=== PATIENT | male | born 1935 | race Caucasian/White ===

== ENCOUNTER 2016-06-20 10:45 | Emergency (ER) | payer MEDICARE ==
[2016-06-20 10:56] VITALS: BP 154/80
--- NOTE | 2016-06-20 11:50 | UC ---
Respiratory Complaint HPI - HPI Summary HPI Summary: The patient comes in today for: 1. Sinus pressure, rhinitis, cold chills, coughing, myalgia: Onset: 10 days ago. Palliative/provocative: Tylenol helps relieves pain of the neck (posterior) and shoulders. He has pain down his left arm. He denies any chest pain. Quality: [place] Region: Left arm aching, bilateral shoulder pain, posterior neck. Severity: 7/10 Time: Constant. Associated symptoms: Dyspnea: No new shortness of breath. Temperature: None. Rhinitis: white Cough: dry. * - History of Current Complaint Chief Complaint: UC Stated Complaint: SINUS CONGESTION, AND ACHES Time Seen by Provider: 06/20/16 11:39 Hx Obtained From: Patient - Allergies/Home Medications Allergies/Adverse Reactions: Allergies Allergy/AdvReac Type Severity Reaction Status Date / Time Niacin Allergy Severe Hives Verified 06/20/16 10:50 Fish Oil Allergy Unknown Verified 06/20/16 10:50 Reaction Details Colesevelam [From Welchol] AdvReac Severe See Comment Verified 06/20/16 10:50 Atorvastatin [From Lipitor] AdvReac Intermediate See Comment Verified 06/20/16 10:50 Simvastatin [From Zocor] AdvReac Intermediate See Comment Verified 06/20/16 10: 50 Dronedarone [From Multaq] AdvReac Mild GI Upset Verified 06/20/16 10:50 Metoprolol [From Lopressor] AdvReac Mild See Comment Verified 06/20/16 10:50 Nitroglycerin AdvReac Mild See Comment Verified 06/20/16 10:50 Tamsulosin [From Flomax] AdvReac Mild See Comment Verified 06/20/16 10:50 Warfarin [From Coumadin] AdvReac Mild See Comment Verified 06/20/16 10:50 TYKOSYN Allergy V TACH Uncoded 06/20/16 10:50 Home Medications: Home Medications Methocarbamol TAB* [Robaxin TAB*] 500 mg PO TID PRN 06/20/16 [History Confirmed 06/20/16] Omeprazole [Prilosec] 20 mg PO DAILY 06/20/16 [History Confirmed 06/20/16] Tamsulosin HCl [Flomax] 1 cap PO DAILY 06/20/16 [History Confirmed 06/20/16] PMH/Surg Hx/FS Hx/Imm Hx Previously Healthy: No - BPH, Endocrine History Of: Reports: Thyroid Disease Denies: Diabetes Cardiovascular History Of: Reports: Cardiac Disorders - THREE heart surgeries since 2006; a fib, Hypertension, Pacemaker/ICD, Congestive Heart Failure, Atrial Fibrillation Denies: Myocardial Infarction, Deep Vein Thrombosis, Bleeding Disorders Respiratory History Of: Reports: COPD Denies: Asthma, Bronchitis, Pneumonia, Pulmonary Embolism GI/ History Of: Reports: Gastroesophageal Reflux, Gall Bladder Disease - Removed. Denies: Ulcer, Gastrointestinal Bleed, Kidney Stones, Diverticulitis, Renal Disease, Urosepsis Neurological History Of: Denies: TIA, CVA, Dementia, Seizures, Migraine Psychological History Of: Denies: Anxiety, Depression, Bipolar Disorder, Schizophrenia, Post Traumatic Stress Disorder Cancer History Of: Denies: Lung Cancer, Colorectal Cancer, Breast Cancer, Prostate Cancer, Cervical Cancer Other History Of: Anticoagulant Therapy Negative For: HIV, Hepatitis B, Hepatitis C - Surgical History Surgical History: Yes Surgery Procedure, Year, and Place: BL knee rplace. left ankle. jodie. cataracts. aortic valve replace. VENOUS GRAFT/double bypass. pacemaker, stents. pacemaker. cardiac stent. TRACY IN LLE. Gallbladder out - Family History Known Family History: Positive: Cardiac Disease, Hypertension, Diabetes - Social History Occupation: Retired Lives: With Family Alcohol Use: None Substance Use Type: None Smoking Status (MU): Never Smoked Tobacco Have You Smoked in the Last Year: No - Immunization History Most Recent Influenza Vaccination: fall 2015 Most Recent Tetanus Shot: within the last 10 years Most Recent Pneumonia Vaccination: 2013 Review of Systems Constitutional: Chills Skin: Negative Eyes: Negative ENT: Negative, Nasal Discharge Respiratory: Cough Cardiovascular: Negative Gastrointestinal: Negative Genitourinary: Negative All Other Systems Reviewed And Are Negative: Yes Physical Exam Triage Information Reviewed: Yes Appearance: Well-Appearing, No Pain Distress, Well-Nourished Vital Signs: Initial Vital Signs Temp 99.0 F 06/20/16 10:51 Pulse 79 06/20/16 10:51 Resp 16 06/20/16 10:51 BP 154/80 06/20/16 10:51 Pulse Ox 100 06/20/16 10:51 Vital Signs Reviewed: Yes Eyes: Positive: Conjunctiva Clear. Negative: Discharge ENT: Positive: Hearing grossly normal. Negative: Pharyngeal erythema, Nasal congestion, Nasal drainage, TM bulging, TM dull, TM red, Tonsillar swelling, Tonsillar exudate Dental: Negative: Gross Decay/Caries @, Dental Fracture @ Neck: Positive: Supple, Nontender, No Lymphadenopathy. Negative: Nuchal Rigidity Respiratory: Positive: Chest non-tender, Lungs clear, No respiratory distress, No accessory muscle use Cardiovascular: Positive: RRR, No Murmur Abdomen Description: Positive: Nontender, No Organomegaly, Soft. Negative: Distended, Guarding Musculoskeletal: Positive: Strength Intact, ROM Intact Neurological: Positive: Alert, Muscle Tone Normal Psychological: Positive: Age Appropriate Behavior, Consolable Skin: Negative: rashes, breakdown UC Diagnostic Evaluation - Laboratory O2 Sat by Pulse Oximetry: 100 Diagnostic Studies Comment: CXR: IMPRESSION: 1. Postsurgical changes and cardiomegaly, unchanged. 2. COPD, no evidence for acute finding. 3. Chronic dorsal vertebral compression fractures. - Radiology Xray Interpretation: No Acute Changes Radiology Interpretation Completed By: Radiologist Respiratory Course/Dx - Differential Dx/Diagnosis Provider Diagnoses: Viral syndrome. Early bacterial sinusitis Discharge - Discharge Plan Condition: Stable Disposition: HOME Patient Education Materials: Viral Syndrome (ED), Sinusitis (ED)
--- NOTE | 2016-06-20 12:27 | RAD ---
INDICATION: Chills cough, COPD and dyspnea. COMPARISON: Comparison is made with a prior study from August 24, 2014. TECHNIQUE: Dual-energy PA and lateral views of the chest were obtained. FINDINGS: The patient appears to be status post sternotomy and aortic valve surgery. The heart is moderately enlarged and unchanged in size. There is a transvenous pacemaker present. There is bilateral apical pleural thickening which is unchanged most consistent with scarring. The lungs are hyperinflated with flattening of the diaphragms consistent with chronic obstructive pulmonary disease. The lungs are clear. No pleural effusion is seen. 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 There are multiple compression fractures of mid and lower dorsal vertebra which have progressed slightly from the prior study. IMPRESSION: 1. Postsurgical changes and cardiomegaly, unchanged. 2. COPD, no evidence for acute finding. 3. Chronic dorsal vertebral compression fractures.
== END 2016-06-20 13:30 | disposition home or self-care (01) ==
LOC: UCEAST 10:45
DX: B34.9 Viral infection, unspecified (principal); J32.9 Chronic sinusitis, unspecified; Z88.8 Allergy status to other drugs, medicaments and biological substances; I48.91 Unspecified atrial fibrillation; Z79.01 Long term (current) use of anticoagulants; Z95.0 Presence of cardiac pacemaker; I10 Essential (primary) hypertension; I50.9 Heart failure, unspecified; K21.9 Gastro-esophageal reflux disease without esophagitis; J44.9 Chronic obstructive pulmonary disease, unspecified; Z90.49 Acquired absence of other specified parts of digestive tract; Z96.653 Presence of artificial knee joint, bilateral; Z98.42 Cataract extraction status, left eye; Z98.41 Cataract extraction status, right eye
CPT/HCPCS: 71020; 93005; 99212; G0463

== ENCOUNTER 2016-12-12 09:45 | Emergency (ER) | payer MEDICARE ==
--- NOTE | 2016-12-12 11:09 | UC ---
Upper Extremity HPI - HPI Summary HPI Summary: This is an 81 yo male with extensive cardiac history who presents with c/o L shoulder pain. Pain started suddenly 3-4 days ago. No acute injury or trauma that started the pain. Pain is over the mid scapula and radiates up to his neck and down his arm. Exacerbated by movement of his neck. He has been taking APAP without improvement. His has been applying a muscle rub with some improvement. <Mike Richards - Last Filed: 12/12/16 12:07> <Daja Curry - Last Filed: 12/12/16 20:44> - History of Current Complaint Chief Complaint: UCUpperExtremity Stated Complaint: SHOULDER PAIN - Allergies/Home Medications Allergies/Adverse Reactions: Allergies Allergy/AdvReac Type Severity Reaction Status Date / Time Niacin Allergy Severe Hives Verified 12/12/16 09:56 Fish Oil Allergy Unknown Verified 12/12/16 09:56 Reaction Details Colesevelam [From Welchol] AdvReac Severe See Comment Verified 12/12/16 09:56 Atorvastatin [From Lipitor] AdvReac Intermediate See Comment Verified 12/12/16 09:56 Simvastatin [From Zocor] AdvReac Intermediate See Comment Verified 12/12/16 09: 56 Dronedarone [From Multaq] AdvReac Mild GI Upset Verified 12/12/16 09:56 Metoprolol [From Lopressor] AdvReac Mild See Comment Verified 12/12/16 09:56 Nitroglycerin AdvReac Mild See Comment Verified 12/12/16 09:56 Tamsulosin [From Flomax] AdvReac Mild See Comment Verified 12/12/16 09:56 Warfarin [From Coumadin] AdvReac Mild See Comment Verified 12/12/16 09:56 TYKOSYN Allergy V TACH Uncoded 12/12/16 09:56 PMH/Surg Hx/FS Hx/Imm Hx Previously Healthy: No Cardiovascular History: Cardiac Disease Other History Of: Anticoagulant Therapy Negative For: HIV, Hepatitis B, Hepatitis C - Surgical History Surgical History: Yes Surgery Procedure, Year, and Place: BL knee rplace. left ankle. jodie. cataracts. aortic valve replace. VENOUS GRAFT/double bypass. pacemaker, stents. pacemaker. cardiac stent. TRACY IN LLE. Gallbladder. cardiac ablation - Family History Known Family History: Positive: Cardiac Disease, Hypertension, Diabetes - Social History Alcohol Use: None Substance Use Type: None Smoking Status (MU): Never Smoked Tobacco Have You Smoked in the Last Year: No - Immunization History Most Recent Influenza Vaccination: fall 2015 Most Recent Tetanus Shot: within the last 10 years Most Recent Pneumonia Vaccination: 2013 <Mike Richards - Last Filed: 12/12/16 12:07> Review of Systems Constitutional: Negative Skin: Negative Eyes: Negative ENT: Negative Respiratory: Negative Cardiovascular: Negative Gastrointestinal: Negative Genitourinary: Negative Motor: Decreased ROM Neurovascular: Negative Musculoskeletal: Arthralgia, Decreased ROM Neurological: Negative Psychological: Negative All Other Systems Reviewed And Are Negative: Yes <Mike Richards - Last Filed: 12/12/16 12:07> Physical Exam Triage Information Reviewed: Yes Appearance: Well-Appearing Vital Signs: Initial Vital Signs Temp 98.5 F 12/12/16 09:57 Pulse 71 12/12/16 09:57 Resp 18 12/12/16 09:57 BP 131/69 12/12/16 09:57 Pulse Ox 100 12/12/16 09:57 Vital Signs Reviewed: Yes ENT: Positive: Normal ENT inspection Neck: Positive: Supple, Tenderness @ - L lateral neck and trapezius Respiratory: Positive: Lungs clear. Negative: Crackles, Rhonchi, Wheezing Cardiovascular: Positive: RRR, No Murmur Musculoskeletal: Positive: Strength Intact, ROM Limited @ - cervical flexion and extension limited due to pain and arthritic changes, Other: - kyphotic posture Neurological: Positive: Alert Psychological: Positive: Normal Response To Family Skin Exam: Normal <Mike Richards - Last Filed: 12/12/16 12:07> Vital Signs: Initial Vital Signs Temp 98.5 F 12/12/16 09:57 Pulse 71 12/12/16 09:57 Resp 18 12/12/16 09:57 BP 131/69 12/12/16 09:57 Pulse Ox 100 12/12/16 09:57 <Daja Curry - Last Filed: 12/12/16 20:44> Diagnostics - Laboratory Diagnostic Studies Completed/Ordered: XR CS - advanced OA, nothing acute. XR L shoulder - mild OA at AC joint, no acute process <Mike Richards - Last Filed: 12/12/16 12:07> Upper Extremity Course/Dx - Course Course Of Treatment: This is an 81 yo male with extensive cardiac history who presents with L shoulder pain exacerbated with neck movement. Patient requested XRs which demonstrated OA but no acute findings. This likely represents cervical strain and associated trapezium spasm. - Differential Dx/Diagnosis Differential Diagnosis/HQI/PQRI: Arthritis, Fracture (Closed), Strain, Sprain Provider Diagnoses: 1. Cervical strain <Mike Richards - Last Filed: 12/12/16 12:07> Discharge <Mike Richards - Last Filed: 12/12/16 12:07> <Daja Curry - Last Filed: 12/12/16 20:44> - Discharge Plan Condition: Stable Disposition: HOME Patient Education Materials: Cervical Strain (ED) Referrals: Hugh Cobos MD [Primary Care Provider] - If Needed Additional Instructions: Activity: As tolerated Instructions: 1. Apply heat to the area frequently 2. Apply muscle rub cream for relief 3. Light massage can help 4. Continue tylenol as needed Attestation Statement User Type: Provider - I was available for consult. This patient was seen by the ROMAINE. The patient was not presented to, seen by, or examined by me. -Cheryl <Djaa Curry - Last Filed: 12/12/16 20:44>
--- NOTE | 2016-12-12 11:43 | RAD ---
INDICATION: Left neck and shoulder pain COMPARISON: None TECHNIQUE: AP, lateral, and odontoid views were acquired FINDINGS: Bones: There are no acute bony findings. There are advanced arthritic changes with disc space narrowing from C3 through C7. The lower cervical vertebrae are not well evaluated, however, due to interference the patient's shoulders. There is also endplate sclerosis with multilevel facet arthropathy. Mild anterolistheses of multiple vertebrae are likely on the basis of degenerative change. The AP view the odontoid is limited. The atlantodental interval is normal. The prevertebral soft tissues are normal. IMPRESSION: ADVANCED OSTEOARTHRITIS.
[2016-12-12 11:44] VITALS: BP 130/65
--- NOTE | 2016-12-12 11:48 | RAD ---
INDICATION: Left shoulder pain COMPARISON: None TECHNIQUE: Routine frontal, Y and axial views were obtained. FINDINGS: There is no acute bony change. There is mild glenohumeral osteoarthritis. The AC joint is intact The soft tissues are normal.. IMPRESSION: MINOR AC JOINT OSTEOARTHRITIS
== END 2016-12-12 12:12 | disposition home or self-care (01) ==
LOC: UCEAST 09:45
DX: S16.1XXA Strain of muscle, fascia and tendon at neck level, initial encounter (principal); X58.XXXA Exposure to other specified factors, initial encounter; Y93.9 Activity, unspecified; Y99.9 Unspecified external cause status; Z88.8 Allergy status to other drugs, medicaments and biological substances; I25.10 Atherosclerotic heart disease of native coronary artery without angina pectoris; Z98.61 Coronary angioplasty status
CPT/HCPCS: 72040; 99212; G0463

== ENCOUNTER 2017-06-13 21:06 | Emergency (ER) | payer MEDICARE ==
[2017-06-13 22:30] LABS: ABS Basophils 0 10^3/ul (0-0.2); ABS Eosinophils 0.1 10^3/ul (0-0.6); ABS Lymphocytes 0.9 10^3/ul (1.0-4.8); ABS Monocytes 0.8 10^3/ul (0-0.8); ABS Neutrophils 3.8 10^3/ul (1.5-7.7); ABS Nucleated RBC 0 10^3/ul; Eosinophil % 1.7 % (0-6); Hematocrit 33 % (42-52); Hemoglobin 11.3 g/dl (14.0-18.0); Lymphocyte % 16.3 % (25-47); Mean Corpuscular HGB Conc 34 g/dl (31-36); Mean Corpuscular Hemoglobin 34 pg (27-31); Mean Corpuscular Volume 99 fL (80-94); Mean Platelet Volume 9 um3 (7.4-10.4); Nucleated Red Blood Cells % 0; Platelet Count 131 10^3/ul (150-450); Red Blood Count 3.35 10^6/ul (4.0-5.4); Red Cell Distribution Width 13 % (10.5-15); White Blood Count 5.7 10^3/ul (3.5-10.8)
[2017-06-13 22:44] LABS: EGFR Non-African American 43.7 (>60)
--- NOTE | 2017-06-14 02:20 | ED ---
Adrian Barksdale Jennifer, scribed for Fabián Cai on 06/13/17 at 2202 . HPI Chest Pain - HPI Summary HPI Summary: The patient is an 81 year old male who presents to the ED with chest pain that began at 18:30. The patient explains he was in the hospital this afternoon but discharged at 14:00. He was told to return to the ED if any chest pain came back. The patient describes the pain as a pressure but explains he feels fine in the ED now. He did not take any NTG on the way to the ED. The patient denies fever, cough. - History of Current Complaint Chief Complaint: EDChestPainROMI Time Seen by Provider: 06/13/17 21:39 Hx Obtained From: Patient Onset/Duration: Started Hours Ago - about 3-4 hours ago, Resolved Timing: Constant Initial Severity: Mild Current Severity: Mild Pain Intensity: 5 Pain Scale Used: 0-10 Numeric Chest Pain Radiates: No Character: Pressure/Squeezing Aggravating Factor(s): Nothing Alleviating Factor(s): Nothing Associated Signs and Symptoms: Positive: Negative - Fever, cough - Additional Pertinent History Primary Care Physician: [id number] - Allergy/Home Medications Allergies/Adverse Reactions: Allergies Allergy/AdvReac Type Severity Reaction Status Date / Time atorvastatin [From Lipitor] Allergy See Comment Verified 06/13/17 21:16 colesevelam [From WelChol] Allergy Constipatio Verified 06/13/17 21:16 n dronedarone Allergy GI Upset Verified 06/13/17 21:16 fish oil Allergy Unknown Verified 06/13/17 21:16 Reaction Details metoprolol Allergy See Comment Verified 06/13/17 21:16 niacin Allergy Hives Verified 06/13/17 21:16 nitroglycerin Allergy See Comment Verified 06/13/17 21:16 simvastatin Allergy See Comment Verified 06/13/17 21:16 tamsulosin [From Flomax] Allergy Dizziness Verified 06/13/17 21:16 warfarin Allergy Unknown Verified 06/13/17 21:16 Reaction Details TYKOSYN Allergy V TACH Uncoded 06/13/17 21:16 PMH/Surg Hx/FS Hx/Imm Hx Endocrine/Hematology History: Reports: Hx Anticoagulant Therapy, Hx Blood Transfusions, Hx Thyroid Disease Denies: Hx Bone Marrow Disease, Hx Diabetes, Hx Systemic Lupus Erythematosus , Hx Sickle Cell Disease, Hx Anemia, Hx Unexplained Bleeding Cardiovascular History: Reports: Hx Angina, Hx Angioplasty, Hx Atrial Fibrillation, Hx Auto Implanted Cardiovert Defib, Hx Congestive Heart Failure, Hx Coronary Artery Disease - with bypass, Hx Hypercholesterolemia, Hx Hypotension, Hx Hypertension, Hx Pacemaker/ICD, Hx Valvular Heart Disease - AORTIC STENOSIS/VALVE REPLACEMENT, Other Cardiovascular Problems/Disorders - valve replacement, pacemaker Denies: Hx Aneurysm, Hx Cardiac Arrest, Hx Cardiomegaly, Hx Congenital Heart Disease, Hx Deep Vein Thrombosis, Hx Embolism, Hx Myocardial Infarction, Hx Peripheral Vascular Disease, Hx Rheumatic Fever, Hx Syncope Respiratory History: Reports: Hx Chronic Obstructive Pulmonary Disease (COPD), Hx Sleep Apnea, Other Respiratory Problems/Disorders - on home O2. 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 Denies: Hx Asthma, Hx Lung Cancer, Hx Pneumonia, Hx Pulmonary Embolism GI History: Reports: Hx Diverticulosis, Hx Gall Bladder Disease - Removed., Hx Gastroesophageal Reflux Disease, Hx Hiatal Hernia, Hx Irritable Bowel, Other GI Disorders - GERD hiatal hernia hx ileus occas diarhea Denies: Hx Gastrointestinal Bleed, Hx Ulcer, Hx Urosepsis History: Reports: Hx Acute Renal Failure, Other Problems/Disorders - enlarged prostate hx bx Denies: Hx Kidney Stones, Hx Renal Disease Musculoskeletal History: Reports: Hx Arthritis, Other Musculoskeletal History - arthritis knees toes wrist Denies: Hx Back Problems, Hx Bursitis, Hx Congenital Bone Abnormalities, Hx Fibromyalgia, Hx Gout, Hx Orthopedic Injury, Hx Osteoporosis, Hx Scoliosis, Hx Tendonitis Sensory History: Denies: Hx Cataracts, Hx Contacts or Glasses, Hx Eye Prosthesis, Hx Glaucoma , Hx Legally Blind, Hx Macular Degeneration, Hx Vision Problem, Hx Deafness, Hx Hearing Aid Opthamlomology History: Denies: Hx Cataracts, Hx Contacts or Glasses, Hx Eye Prosthesis, Hx Glaucoma , Hx Legally Blind, Hx Macular Degeneration, Hx Vision Problem Neurological History: Reports: Hx Headaches Denies: Hx Dementia, Hx Developmental Delay, Hx Migraine, Hx Nerve Disease, Hx Seizures, Hx Spinal Cord Injury, Hx Transient Ischemic Attacks (TIA) Psychiatric History: Reports: Hx Anxiety, Hx Depression Denies: Hx Schizophrenia, Hx Bipolar Disorder - Surgical History Surgery Procedure, Year, and Place: BL knee rplace. left ankle. jodie. cataracts. aortic valve replace. VENOUS GRAFT/double bypass. pacemaker, stents. pacemaker. cardiac stent. TRACY IN LLE. Gallbladder. cardiac ablation Hx Anesthesia Reactions: No Infectious Disease History: No Infectious Disease History: Denies: Hx Clostridium Difficile, Hx Hepatitis, Hx Human Immunodeficiency Virus (HIV), Hx of Known/Suspected MRSA, Hx Shingles, Hx Tuberculosis, Hx Known/ Suspected VRE, Hx Known/Suspected VRSA, History Other Infectious Disease, Traveled Outside the [place] in Last 30 Days - Family History Known Family History: Positive: Cardiac Disease, Hypertension, Diabetes - Social History Alcohol Use: None Substance Use Type: Reports: None Hx Tobacco Use: No Smoking Status (MU): Never Smoked Tobacco Have You Smoked in the Last Year: No Review of Systems Negative: Fever Positive: Chest Pain Negative: Cough All Other Systems Reviewed And Are Negative: Yes Physical Exam - Summary Physical Exam Summary: Appearance: Well appearing, no pain distress Skin: warm, dry, reflects adequate perfusion Head/face: normal Eyes: EOMI, BIANCA ENT: normal Neck: supple, non-tender Respiratory: CTA, breath sounds present Cardiovascular: RRR, pulses symmetrical Abdomen: non-tender, soft Bowel: present Musculoskeletal: normal, strength/ROM intact Neuro: normal, sensory motor intact, A&Ox3 Triage Information Reviewed: Yes Vital Signs On Initial Exam: Initial Vitals Temp Pulse Resp BP Pulse Ox 98.6 F 86 20 156/84 100 06/13/17 21:12 06/13/17 21:12 06/13/17 21:12 06/13/17 21:12 06/13/17 21:12 Vital Signs Reviewed: Yes Diagnostics - Vital Signs Vital Signs Temp Pulse Resp BP Pulse Ox 06/13/17 21:30 71 19 97 06/13/17 21:12 98.6 F 86 20 156/84 100 - Laboratory Lab Results: Lab Results 06/13/17 06/13/17 06/13/17 Range/Units 22:13 22:13 22:13 WBC 5.7 (3.5-10.8) 10^3/ul RBC 3.35 L (4.0-5.4) 10^6/ul Hgb 11.3 L (14.0-18.0) g/dl Hct 33 L (42-52) % MCV 99 H (80-94) fL MCH 34 H (27-31) pg MCHC 34 (31-36) g/dl RDW 13 (10.5-15) % Plt Count 131 L (150-450) 10^3/ul MPV 9 (7.4-10.4) um3 Neut % (Auto) 67.5 (38-83) % Lymph % (Auto) 16.3 L (25-47) % [place] % (Auto) 13.8 H (0-7) % Eos % (Auto) 1.7 (0-6) % Baso % (Auto) 0.7 (0-2) % Absolute Neuts (auto) 3.8 (1.5-7.7) 10^3/ul Absolute Lymphs (auto) 0.9 L (1.0-4.8) 10^3/ul Absolute Monos (auto) 0.8 (0-0.8) 10^3/ul Absolute Eos (auto) 0.1 (0-0.6) 10^3/ul Absolute Basos (auto) 0 (0-0.2) 10^3/ul Absolute Nucleated RBC 0 10^3/ul Nucleated RBC % 0 Sodium 132 L (133-145) mmol/L Potassium 4.3 (3.5-5.0) mmol/L Chloride 99 L (101-111) mmol/L Carbon Dioxide 28 (22-32) mmol/L Anion Gap 5 (2-11) mmol/L BUN 37 H (6-24) mg/dL Creatinine 1.53 H (0.67-1.17) mg/dL Est GFR ( Amer) 56.2 (>60) Est GFR (Non-Af Amer) 43.7 (>60) BUN/Creatinine Ratio 24.2 H (8-20) Glucose 101 H (70-100) mg/dL Calcium 9.4 (8.6-10.3) mg/dL Total Bilirubin 0.40 (0.2-1.0) mg/dL AST 27 (13-39) U/L ALT 13 (7-52) U/L Alkaline Phosphatase 63 (34-104) U/L Troponin I 0.02 (<0.04) ng/mL B-Natriuretic Peptide 249 H ( - 100) pg/mL Total Protein 6.6 (6.4-8.9) g/dL Albumin 3.8 (3.2-5.2) g/dL Globulin 2.8 (2-4) g/dL Albumin/Globulin Ratio 1.4 (1-3) 06/14/17 Range/Units 01:14 WBC (3.5-10.8) 10^3/ul RBC (4.0-5.4) 10^6/ul Hgb (14.0-18.0) g/dl Hct (42-52) % MCV (80-94) fL MCH (27-31) pg MCHC (31-36) g/dl RDW (10.5-15) % Plt Count (150-450) 10^3/ul MPV (7.4-10.4) um3 Neut % (Auto) (38-83) % Lymph % (Auto) (25-47) % [place] % (Auto) (0-7) % Eos % (Auto) (0-6) % Baso % (Auto) (0-2) % Absolute Neuts (auto) (1.5-7.7) 10^3/ul Absolute Lymphs (auto) (1.0-4.8) 10^3/ul Absolute Monos (auto) (0-0.8) 10^3/ul Absolute Eos (auto) (0-0.6) 10^3/ul Absolute Basos (auto) (0-0.2) 10^3/ul Absolute Nucleated RBC 10^3/ul Nucleated RBC % Sodium (133-145) mmol/L Potassium (3.5-5.0) mmol/L Chloride (101-111) mmol/L Carbon Dioxide (22-32) mmol/L Anion Gap (2-11) mmol/L BUN (6-24) mg/dL Creatinine (0.67-1.17) mg/dL Est GFR ( Amer) (>60) Est GFR (Non-Af Amer) (>60) BUN/Creatinine Ratio (8-20) Glucose (70-100) mg/dL Calcium (8.6-10.3) mg/dL Total Bilirubin (0.2-1.0) mg/dL AST (13-39) U/L ALT (7-52) U/L Alkaline Phosphatase (34-104) U/L Troponin I 0.03 (<0.04) ng/mL B-Natriuretic Peptide ( - 100) pg/mL Total Protein (6.4-8.9) g/dL Albumin (3.2-5.2) g/dL Globulin (2-4) g/dL Albumin/Globulin Ratio (1-3) Result Diagrams: 06/13/17 22:13 06/13/17 22:13 Lab Statement: Any lab studies that have been ordered have been reviewed, and results considered in the medical decision making process. - Radiology CXR Xray Interpretation: No Acute Changes - Normal Radiology Interpretation Completed By: ED Physician - EKG 21:13 EKG Interpretation: Base rhythm at 80 BPM Chest Pain Course/Dx - Course Assessment/Plan: The patient is an 81 year old male who presents to the ED with chest pain that began at 18:30. He reports feeling no pain in the ED now. Bloodwork was obtained. EKG and CXR were obtained. The patient is diagnosed with Atypical chest pain. The patient is instructed to f/u with PCP in three days. - Chest Pain Differential Diagnosis/HQI/PQRI: Acute KS, ACS, Lower Respiratory Infection - Diagnoses Provider Diagnoses: Atypical chest pain Discharge - Discharge Plan Condition: Stable Disposition: HOME Patient Education Materials: Chest Pain (ED) Referrals: Hugh Cobos MD [Primary Care Provider] - 3 Days Additional Instructions: Follow up with your primary care physician in three days. Return to the emergency department for any new or worsening symptoms. The documentation as recorded by the Adrian dyson Jennifer accurately reflects the service I personally performed and the decisions made by , Fabián Cai.
[2017-06-14 02:36] VITALS: BP 126/67
--- NOTE | 2017-06-14 08:24 | RAD ---
Indication: Chest pain. Single frontal view of the chest performed at 2205 hours was reviewed. Comparison is made with previous exam dated June 11, 2017. No mediastinal shift is noted. Cardiomegaly is noted. Pacemaker leads are in place. Patient is status post transsternal thoracotomy.. Lung grier appear clear. IMPRESSION: NO ACTIVE CARDIOPULMONARY DISEASE IS NOTED.
== END 2017-06-14 02:38 | disposition home or self-care (01) ==
LOC: ED 21:06
DX: R07.89 Other chest pain (principal); Z88.8 Allergy status to other drugs, medicaments and biological substances
CPT/HCPCS: 36415; 71045; 80053; 83880; 84484; 85025; 93005; 99282

== ENCOUNTER 2017-08-12 17:14 | Emergency (ER) | payer MEDICARE ==
--- OUTSIDE RECORDS SUMMARY | 2017-08-12 17:58 | XMS REPORT ---
:1935 External Reference #:[id number] Author Organization [facility] Address [address] [place] [id number] Phone [phone] Care Team Providers Name Role Phone Brendan Thomas MD Care Team Information Supervisor [employer] Unavailable Hugh Cobos MD Primary Care Physician Unavailable Payers Type Date Identification Numbers Payment Provider Subscriber Medicare Primary Expires: Policy Number: Medicare Cipriano Cantu 2013 [id number] PayID: [id number] [address] [place] [id number] Medigap Part B Expires: Policy Number: [facility] Supplemental Cipriano Link 2013 [id number] Plan [place] PayID: [id number] [address] [place] [phone] Medigap Part B Effective: 1998 Policy Number: Medicare Cipriano Cantu [id number] PayID: [id number] [address] [place] [address] Medigap Part B Policy Number: [id number] [facility] Supplemental Plan Cipriano Cantu PayID: [id number] [address] [place] [phone] Problems Date Description Provider Status Onset: 08/11/2017 Nocturia Julianne Corcoran PA Active Onset: 12/20/2015 Retention of urine Chavo Roman P.A.-C Active Onset: 12/20/2015 Poor stream of urine Chavo Roman P.A.-C Active Onset: 05/23/2013 Nocturia - finding Jose De Jesus Murry M.D. Active Onset: 05/23/2013 Benign prostatic hypertrophy Jose De Jesus Murry M.D. Active without outflow obstruction Onset: 05/23/2013 Raised prostate specific antigen Jose De Jesus Murry M.D. Active Family History Date Family Member(s) Problem(s) Comments First Brother Prostate Cancer Free Text Denies Prostate, Bladder, Kidney Cancer. No family history of kidney stones. Social History Type Date Description Comments Marital Status Patient is Occupation [employer] Occupation Patient is retired Cigarette Use Never Smoked Cigarettes Cigars Never Smoked Cigars Pipe Never Smoked A Pipe ETOH Use Patient denies alcohol use Allergies, Adverse Reactions, Alerts Date Description Reaction Status Severity Comments 05/23/2013 NKDA active Medications Medication Date Status Form Strength Qnty SIG Indications Ordering Provider Flomax 12/19/ Active Capsules 0.4mg 30cap take one Jeanmarie2015 s capsule Jose De Jesus by mouth Holley MLynn every day after meal Lisinopril / Active Tablets 10mg qd Unknown 0000 Crestor / Active Tablets 5mg qd Unknown 0000 Amiodarone HCL / Active Tablets 200mg qd Unknown 0000 Spironolactone / Active Tablets 25mg 1 1/2 Unknown 0000 daily Xarelto / Active Tablets 15mg qd Unknown 0000 Furosemide / Active Tablets 40mg qd Unknown 0000 Levothyroxine / Active Tablets 75mcg Unknown Sodium 0000 Omeprazole / Active Capsules DR 20mg Unknown 0000 Methocarbamol / Active Tablets 500mg Unknown 0000 Multi Vitamin / Active Tablets 1 by Unknown Daily 0000 mouth every day Calcium 600 + D / Active Tablets 600-200mg Unknown 0000 -Unit Atenolol / Active Tablets 25mg Chandrika 0000 MD Hugh Fluticasone / Active Suspension 50mcg/Act Chandrika, Propionate 0000 MD Hugh Prochlorperazine / Active Tablets 5mg Chandrika, Maleate 0000 MD Hugh Tramadol HCL / Active Tablets 50mg Chandrika, 0000 MD Hugh Tizanidine HCL / Active Tablets 4mg Unknown 0000 Prednisone / Active Tablets 20mg Unknown 0000 Doxycycline / Active Tablets 100mg Unknown Hyclate 0000 Pantoprazole / Active Tablets DR 20mg Unknown Sodium 0000 Triamcinolone / Active Cream 0.1% Chandrika Acetonide 0000 MD Hugh Finasteride 05/23/ Hx Tablets 5mg 90tab 1 po qd 790.93 Jeanmarie 2013 - Jose De Jesus 11/18Jayshree Babb M.D. 2013 Lansoprazole / Hx Capsules DR 15mg qd Unknown 2013 Tylenol Extra / Hx Tablets 500mg prn for Unknown Strength 0000 - back 2014 Nitrostat / Hx Tablets Sub 0.4mg prn Unknown 2013 Colace / Hx Capsules 100mg 90cap 1 by Unknown 0000 - s mouth 12/14/ three 2015 times a day Triamcinolone / Hx Cream 0.1% Unknown Acetonide 2014 Tramadol HCL / Hx Tablets 50mg Unknown 2014 Vital Signs Date Vital Result Comment 08/11/2017 Height 62 inches 5'2" Weight 129.00 lb Weight in kg's 58.514 BMI (Body Mass Index) 23.6 kg/m2 BP Systolic 127 mmHg BP Diastolic 83 mmHg Heart Rate 74 /min Post Void Residual ml 223 cnv, last voided 3 hrs prior, BS, ind: retention 02/03/2017 Height 62 inches 5'2" Weight 122.00 lb Weight in kg's 55.339 BMI (Body Mass Index) 22.3 kg/m2 Post Void Residual ml 62 Bladder Scan 07/29/2016 Height 62 inches 5'2" Weight 139.00 lb Weight in kg's 63.050 BMI (Body Mass Index) 25.4 kg/m2 BP Systolic 119 mmHg BP Diastolic 76 mmHg Heart Rate 67 /min Post Void Residual ml 163 Bladder Scan, last voided at 9am 01/17/2016 Height 62 inches 5'2" Weight 134.00 lb Weight in kg's 60.782 BMI (Body Mass Index) 24.5 kg/m2 BP Systolic 95 mmHg BP Diastolic 63 mmHg Heart Rate 83 /min Post Void Residual ml 31 Bladder Scan 12/20/2015 Height 62 inches 5'2" Weight 132.00 lb Weight in kg's 59.875 BMI (Body Mass Index) 24.1 kg/m2 BP Systolic 144 mmHg BP Diastolic 92 mmHg Heart Rate 88 /min Post Void Residual ml 238 Bladder Scan 12/15/2014 Height 62 inches 5'2" Weight 137.00 lb Weight in kg's 62.143 BMI (Body Mass Index) 25.1 kg/m2 BP Systolic 143 mmHg BP Diastolic 87 mmHg Heart Rate 71 /min Post Void Residual ml 157 cnv, Bladder Scan 12/06/2013 Height 62 inches 5'2" Weight 133.00 lb Weight in kg's 60.329 BMI (Body Mass Index) 24.3 kg/m2 BP Systolic 122 mmHg BP Diastolic 74 mmHg Heart Rate 55 /min Post Void Residual ml 60 Bladder Scan 05/23/2013 Height 62 inches 5'2" Weight 134.00 lb Weight in kg's 60.782 BMI (Body Mass Index) 24.5 kg/m2 BP Systolic 132 mmHg BP Diastolic 70 mmHg Heart Rate 64 /min Post Void Residual 190 Bladder Scanner Results Test Date Test Result H/L Range Note 230 Ua Routine 08/11/2017 Ua Glucose Negative Ua Protein Negative Ua Nitrite Negative Ua Leuko Negative Ua Blood Negative Ua Color Not Entered Ua Ketones Negative Ua Clarity Not Entered Ua Specific [place] 1.020 1.003-1.030 Ua PH 6.5 5.0-7.5 Ua Bilirubin Negative Ua Urobilinogen 0.2 E.U./dL 0.0-1.0 Laboratory test finding 08/05/2017 Total Psa Only 4.11 ng/mL High 0.00- 4.00 230 Ua Routine 02/03/2017 Ua Glucose Negative Ua Protein Negative Ua Nitrite Negative Ua Leuko Negative Ua Blood Negative Ua Color Not Entered Ua Ketones Negative Ua Clarity Not Entered Ua Specific [place] 1.015 1.003-1.030 Ua PH 6.5 5.0-7.5 Ua Bilirubin Negative Ua Urobilinogen 0.2 E.U./dL 0.0-1.0 230 Ua Routine 07/29/2016 Ua Glucose Negative Ua Protein Negative Ua Nitrite Negative Ua Leuko Negative Ua Blood Negative Ua Color Not Entered Ua Ketones Negative Ua Clarity Not Entered Ua Specifici [place] 1.015 1.003-1.030 Ua PH 7.0 5.0-7.5 Ua Bilirubin Negative Ua Urobilinogen 0.2 E.U./dL 0.0-1.0 Laboratory test finding 07/22/2016 Total Psa Only 5.04 ng/mL High 0.00- 4.00 230 Ua Routine 01/17/2016 Ua Glucose Negative Ua Protein Negative Ua Nitrite Negative Ua Leuko Negative Ua Blood Negative Ua Color Not Entered Ua Ketones Negative Ua Clarity Not Entered Ua Specifici [place] 1.020 1.003-1.030 Ua PH 6.0 5.0-7.5 Ua Bilirubin Negative Ua Urobilinogen 0.2 E.U./dL 0.0-1.0 230 Ua Routine 12/20/2015 Ua Glucose Negative Ua Protein Negative Ua Nitrite Negative Ua Leuko Negative Ua Blood Negative Ua Color Not Entered Ua Ketones Negative Ua Clarity Not Entered Ua Specifici [place] 1.020 1.003-1.030 Ua PH 6.0 5.0-7.5 Ua Bilirubin Negative Ua Urobilinogen 0.2 E.U./dL 0.0-1.0 Laboratory test finding 12/18/2015 Total Psa Only 3.87 ng/mL 0.00-4.00 Laboratory test finding 12/13/2014 Total Psa Only 4.39 ng/mL High 0.00- 4.00 Free PSA 1.518 ng/mL % PSA 35 #Ua Routine 12/06/2013 Ua Glucose Negative Ua Protein Negative Ua Nitrite Negative Ua Leuko Negative Ua Blood Negative Ua Color Not Entered Ua Ketones Negative Ua Clarity Not Entered Ua Specific [place] 1.020 1.003-1.030 Ua PH 5.5 5.0-7.5 Ua Bilirubin Negative Ua Urobilinogen 0.2 E.U./dL 0.0-1.0 Laboratory test finding 11/22/2013 Total Psa Only 4.07 ng/mL High 0.00- 4.00 Free PSA 1.244 ng/mL % PSA 31 #Ua Routine 05/23/2013 Ua Glucose Negative Ua Protein Trace Ua Nitrite Negative Ua Leuko Negative Ua Blood Negative Ua Color Not Entered Ua Ketones Negative Ua Clarity Not Entered Ua Specific [place] 1.015 1.003-1.030 Ua PH 6.5 5.0-7.5 Ua Bilirubin Negative Ua Urobilinogen 0.2 E.U./dL 0.2-1 Laboratory test finding 05/11/2013 PSA, Total 5.055 High 0.0-4.00 Procedures Date CPT Code Description Status 08/11/2017 99728 Bladder Scan, Post Voiding Residual Urine Completed 02/03/2017 66303 Bladder Scan, Post Voiding Residual Urine Completed 07/29/2016 82929 Bladder Scan, Post Voiding Residual Urine Completed 01/17/2016 78854 Bladder Scan, Post Voiding Residual Urine Completed 01/17/2016 29456 Urodynamics, Complex Uroflowmetry Eg Calibrated Completed Electronic Office 12/20/2015 67270 Bladder Scan, Post Voiding Residual Urine Completed 12/15/2014 81931 Bladder Scan, Post Voiding Residual Urine Completed 05/23/2013 19335 Bladder Scan, Post Voiding Residual Urine Completed Encounters Type Date Location Provider CPT E/M Dx Office Visit 08/11/2017 10:40a [facility]/ [place] [address] R35.1 Urology R97.20 R33.8 N40.1 Office Visit 02/03/2017 10:20a [facility]/ [place] [address] R97.20 Urology N40.1 R35.1 Office Visit 07/29/2016 10:40a [facility]/ A.M.Chavo P[facility]rez, [address] R97.20 Urology P.A.-C R39.12 Office Visit 01/17/2016 3:00p [facility]/ A.M.Chavo P[facility]rez, [address] R39.12 Urology P.A.-C Office Visit 12/20/2015 2:40p [facility]/ A.M.Chavo P[facility]rez, [address] R39.12 Urology P.A.-C R97.2 R33.9 N40.1 Office Visit 12/15/2014 10:00a [facility]/ A.M.Chavo P[facility]rez, [address] 790.93 Urology P.A.-C 600.00 788.62 788.64 Office Visit 12/06/2013 2:00p [facility]/ A.M.Chavo P[facility]rez, [address]117 790.93 Urology P.A.-C 600.00 788.4-1 Office Visit 05/23/2013 10:20a [place]/ A.M.Jose De Jesus Leung, [address] 790.93 Urology M.Mirella 600.00 788.4-1 Plan of Care Future Appointment(s):02/15/2018 11:00 am - Julianne Corcoran PA at [place]/ A.M.P. [id number]/11/2017 - Julianne Corcoran, PAR35.1 NocturiaComments:Nocturia is chronic and stable for patient.R97.20 Elevated prostate specific antigen [PSA ]Comments:Lab reports were personally reviewed during the office visit today. PSA is still slightly elevated but improved from prior at 4.11. He declined JANNA today. Will recheck PSA in 1 year.R33.8 Other retention of urineComments: Moderate retention noted via bladder scanner. Patient to follow up in 6 months with post-void residual to assess for worsening retention.N40.1 Benign prostatic hyperplasia with lower urinary tract sympComments:Will continue with Flomax daily as he does feel this helps his urinary symptoms. As noted above, PSAis improved over prior and he declined JANNA today.AllFollow up:-- Follow up in 6 months with post-void residual, indication: retention
[2017-08-12] MEDS ORDERED: Morphine VIAL* 4 MG/ML VIAL (1 ml vial) IV ONE (19:53)
[2017-08-12] MEDS ORDERED: Ondansetron INJ* 2 MG/ML VIAL IV ONE (19:53)
--- NOTE | 2017-08-12 20:00 | ED ---
Lower Extremity - HPI Summary HPI Summary: 82-year-old male with known peripheral vascular disease sent in by his journeyman millwright for concern for arterial insufficiency in his right leg. The patient states that he has had increased pain, change in color, coldness of his right foot for the last several days. It is now extending up into his ankle and lower leg. The leg is swelling. He has wounds on the toes that are having difficulty healing. This is similar but to a lesser extent on the left foot as well. Eyes any chest pain, shortness of breath, fevers. He does not recall an exact onset time but feels that this happened rather gradually but has worsened such that he is now an 8 out of 10 pain. - History of Current Complaint Chief Complaint: EDRashSkinAbscess Stated Complaint: POSSIBLE INFECTION ON RT FOOT Time Seen by Provider: 08/12/17 19:45 Hx Obtained From: Patient, Family/Degreaser Operator Pain Intensity: 8 - Allergies/Home Medications Allergies/Adverse Reactions: Allergies Allergy/AdvReac Type Severity Reaction Status Date / Time atorvastatin [From Lipitor] Allergy See Comment Verified 08/12/17 17:22 colesevelam [From WelChol] Allergy Constipatio Verified 08/12/17 17:22 n dronedarone Allergy GI Upset Verified 08/12/17 17:22 fish oil Allergy Unknown Verified 08/12/17 17:22 Reaction Details metoprolol Allergy See Comment Verified 08/12/17 17:22 niacin Allergy Hives Verified 08/12/17 17:22 nitroglycerin Allergy See Comment Verified 08/12/17 17:22 simvastatin Allergy See Comment Verified 08/12/17 17:22 tamsulosin [From Flomax] Allergy Dizziness Verified 08/12/17 17:22 warfarin Allergy Unknown Verified 08/12/17 17:22 Reaction Details TYKOSYN Allergy V TACH Uncoded 08/12/17 17:22 Home Medications: Home Medications Acetaminophen [Tylenol Extra Strength] 500 - 1,000 mg PO DAILY PRN 08/12/17 [ History Confirmed 08/12/17] Budesonide CAP(NF) 3 mg PO TID 08/12/17 [History Confirmed 08/12/17] Carvedilol TAB* [Coreg TAB*] 3.125 mg PO BID 08/12/17 [History Confirmed ] Docusate CAP* [Colace Cap*] 100 mg PO DAILY PRN 08/12/17 [History Confirmed ] Fluticasone NASAL SPRAY 50MCG* [Flonase NASAL SPRAY 50MCG*] 2 spray BOTH NARES DAILY 08/12/17 [History Confirmed 08/12/17] Furosemide TAB* [Lasix TAB*] 20 mg PO EVERY OTHER DAY 08/12/17 [History Confirmed 08/12/17] Levothyroxine TAB* [Synthroid TAB*] 75 mcg PO DAILY 08/12/17 [History Confirmed 08/12/17] Lisinopril TAB* [Prinivil TAB*] 10 mg PO DAILY 08/12/17 [History Confirmed 08/12] Loperamide HCl [Imodium A-D] 2 mg PO DAILY 08/12/17 [History Confirmed 08/12/17] Methocarbamol TAB* [Robaxin 500 MG TAB*] 500 mg PO TID PRN 08/12/17 [History Confirmed 08/12/17] Multivitamins/Minerals TAB* [Theragran/minerals TAB*] 1 tab PO DAILY 08/12/17 [ History Confirmed 08/12/17] Pantoprazole TAB (NF) [Protonix TAB (NF)] 20 mg PO BID 08/12/17 [History Confirmed 08/12/17] Prochlorperazine TAB* [Compazine Tab*] 5 mg PO DAILY PRN 08/12/17 [History Confirmed 08/12/17] Ranitidine TAB (NF) [Zantac TAB (NF)] 300 mg PO BID 08/12/17 [History Confirmed 08/12/17] Rivaroxaban TAB(*) [Xarelto 15 mg(*)] 15 mg PO QPM 08/12/17 [History Confirmed 08/12/17] Rosuvastatin (NF) [Crestor (NF)] 5 mg PO DAILY 08/12/17 [History Confirmed 08/12] Spironolactone TAB* [Aldactone TAB*] 25 mg PO EVERY OTHER DAY 08/12/17 [History Confirmed 08/12/17] Tamsulosin CAP* [Flomax CAP*] 0.4 mg PO DAILY 08/12/17 [History Confirmed ] Triamcinolone 0.5% OINT * 1 applic TOPICAL BID PRN 08/12/17 [History Confirmed 08/12/17] PMH/Surg Hx/FS Hx/Imm Hx Endocrine/Hematology History: Reports: Hx Anticoagulant Therapy, Hx Blood Transfusions, Hx Thyroid Disease Denies: Hx Bone Marrow Disease, Hx Diabetes, Hx Systemic Lupus Erythematosus , Hx Sickle Cell Disease, Hx Anemia, Hx Unexplained Bleeding Cardiovascular History: Reports: Hx Angina, Hx Angioplasty, Hx Atrial Fibrillation, Hx Auto Implanted Cardiovert Defib, Hx Congestive Heart Failure, Hx Coronary Artery Disease - with bypass, Hx Hypercholesterolemia, Hx Hypotension, Hx Hypertension, Hx Pacemaker/ICD, Hx Valvular Heart Disease - AORTIC STENOSIS/VALVE REPLACEMENT, Other Cardiovascular Problems/Disorders - valve replacement, pacemaker Denies: Hx Aneurysm, Hx Cardiac Arrest, Hx Cardiomegaly, Hx Congenital Heart Disease, Hx Deep Vein Thrombosis, Hx Embolism, Hx Myocardial Infarction, Hx Peripheral Vascular Disease, Hx Rheumatic Fever, Hx Syncope Respiratory History: Reports: Hx Chronic Obstructive Pulmonary Disease (COPD), Hx Sleep Apnea, Other Respiratory Problems/Disorders - on home O2. 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 Denies: Hx Asthma, Hx Lung Cancer, Hx Pneumonia, Hx Pulmonary Embolism GI History: Reports: Hx Diverticulosis, Hx Gall Bladder Disease - Removed., Hx Gastroesophageal Reflux Disease, Hx Hiatal Hernia, Hx Irritable Bowel, Other GI Disorders - GERD hiatal hernia hx ileus occas diarhea Denies: Hx Gastrointestinal Bleed, Hx Ulcer, Hx Urosepsis History: Reports: Hx Acute Renal Failure, Other Problems/Disorders - enlarged prostate hx bx Denies: Hx Kidney Stones, Hx Renal Disease Musculoskeletal History: Reports: Hx Arthritis, Other Musculoskeletal History - arthritis knees toes wrist Denies: Hx Back Problems, Hx Bursitis, Hx Congenital Bone Abnormalities, Hx Fibromyalgia, Hx Gout, Hx Orthopedic Injury, Hx Osteoporosis, Hx Scoliosis, Hx Tendonitis Sensory History: Denies: Hx Cataracts, Hx Contacts or Glasses, Hx Eye Prosthesis, Hx Glaucoma , Hx Legally Blind, Hx Macular Degeneration, Hx Vision Problem, Hx Deafness, Hx Hearing Aid Opthamlomology History: Denies: Hx Cataracts, Hx Contacts or Glasses, Hx Eye Prosthesis, Hx Glaucoma , Hx Legally Blind, Hx Macular Degeneration, Hx Vision Problem Neurological History: Reports: Hx Headaches Denies: Hx Dementia, Hx Developmental Delay, Hx Migraine, Hx Nerve Disease, Hx Seizures, Hx Spinal Cord Injury, Hx Transient Ischemic Attacks (TIA) Psychiatric History: Reports: Hx Anxiety, Hx Depression Denies: Hx Schizophrenia, Hx Bipolar Disorder - Surgical History Surgery Procedure, Year, and Place: BL knee rplace. left ankle. jodie. cataracts. aortic valve replace. VENOUS GRAFT/double bypass. pacemaker, stents. pacemaker. cardiac stent. TRACY IN LLE. Gallbladder. cardiac ablation Hx Anesthesia Reactions: No Infectious Disease History: No Infectious Disease History: Denies: Hx Clostridium Difficile, Hx Hepatitis, Hx Human Immunodeficiency Virus (HIV), Hx of Known/Suspected MRSA, Hx Shingles, Hx Tuberculosis, Hx Known/ Suspected VRE, Hx Known/Suspected VRSA, History Other Infectious Disease, Traveled Outside the [place] in Last 30 Days - Family History Known Family History: Positive: Cardiac Disease, Hypertension, Diabetes - Social History Alcohol Use: None Substance Use Type: Reports: None Hx Tobacco Use: No Smoking Status (MU): Never Smoked Tobacco Have You Smoked in the Last Year: No Review of Systems Negative: Fever, Chills ENT: Negative Negative: Palpitations, Chest Pain Negative: Shortness Of Breath Negative: Vomiting, Nausea Positive: Decreased ROM, Edema, Other - pain R foot Positive: Rash, Bruising All Other Systems Reviewed And Are Negative: Yes Physical Exam Triage Information Reviewed: Yes Vital Signs On Initial Exam: Initial Vitals Temp Pulse Resp BP Pulse Ox 98.0 F 68 16 132/69 98 08/12/17 17:20 08/12/17 17:20 08/12/17 17:20 08/12/17 17:20 08/12/17 17:20 Vital Signs Reviewed: Yes Appearance: Positive: Well-Appearing - Appears in mild discomfort Skin: Positive: Other - Bilateral feet show dressed and scabbed wounds. No open or draining wounds. The feet are both cool to the touch but the right foot is noticeably cooler and hyperemic. There is no hair growth on the legs bilaterally. Head/Face: Positive: Normal Head/Face Inspection Eyes: Positive: Normal, EOMI ENT: Positive: Normal ENT inspection Neck: Positive: Supple, Nontender Respiratory/Lung Sounds: Positive: Clear to Auscultation, Breath Sounds Present Cardiovascular: Positive: RRR, Murmur - Systolic murmur, Leg Edema Right Abdomen Description: Positive: Nontender, No Organomegaly, Other: - Thin/ scaphoid without pulsatile abdominal mass Musculoskeletal: Positive: Other - Limited range of motion, findings and the right foot as described above. No pulse in the foot, hyperemic, nonhealing wounds. Neurological: Positive: Other - Pain in the right foot subjectively not increased with exam. Decreased sensation throughout both feet Psychiatric: Positive: Normal Diagnostics - Vital Signs Vital Signs Temp Pulse Resp BP Pulse Ox 08/12/17 19:22 97.1 F 78 16 147/79 100 08/12/17 17:20 98.0 F 68 16 132/69 98 - Laboratory Result Diagrams: 08/12/17 20:30 08/12/17 20:30 Lab Statement: Any lab studies that have been ordered have been reviewed, and results considered in the medical decision making process. - EKG No standard instances Cardiac Rate: NL - 61, paced rhythm ST Segment: Non-Specific Ectopy: None EKG Interpretation: paced rhythm EKG Comparison: No Significant Change Re-Evaluation - Re-Evaluation First Eval Change: Unchanged - Patient actually refused morphine and still having significant pain Lower Extremity Course/Dx - Course Course Of Treatment: Patient with known severe chronic arterial disease on Xarelto with rubor, increased to now severe pain in the right foot and difficulty walking. Not on an antiplatelet agent. Patient is on statin. Arterial ultrasound shows monophasic flow in the dorsalis pedis and the ULTRA SOUND TECHNICIAN arteries of the right foot. ABIs could not be obtained due to severe vascular hardening. Vascular surgery is not available at this site on the patient wished to be transferred to the care of vascular surgery. I spoke with Dr. Marie at [facility] who accepted the patient in transfer. He had like the patient on aspirin or Plavix. I will give a dose of Lasix here prior to transfer. He is very sensitive to morphine and so small doses of fentanyl will be given. His pain is typically controlled with Neurontin at home. - Diagnoses Differential Diagnosis/HQI/PQRI: Positive: Other - Peripheral arterial disease, arterial occlusion, limb ischemia Provider Diagnoses: Ischemic foot pain at rest, Severe peripheral arterial disease - Physician Notifications Discussed Care Of Patient With: Frank - Dr. Marie vascular surgeon at [facility] accepts patient in transfer Reason For Transfer: Specialty or service not available at [facility]. - No vascular surgery available Discharge - Sign-Out/Discharge Documenting (check all that apply): Discharge/Admit/Transfer - Discharge Plan Condition: Fair Disposition: TRANS HIGHER LVL OF CARE FAC Referrals: Hugh Cobos MD [Primary Care Provider] - - Billing Disposition and Condition Condition: FAIR Disposition: EMTALA
[2017-08-12 20:40] LABS: ABS Basophils 0 10^3/ul (0-0.2); ABS Eosinophils 0.1 10^3/ul (0-0.6); ABS Monocytes 0.6 10^3/ul (0-0.8); ABS Neutrophils 2.7 10^3/ul (1.5-7.7); ABS Nucleated RBC 0 10^3/ul; Eosinophil % 2.8 % (0-6); Hematocrit 34 % (42-52); Hemoglobin 11.6 g/dl (14.0-18.0); Mean Corpuscular HGB Conc 34 g/dl (31-36); Mean Corpuscular Hemoglobin 34 pg (27-31); Mean Corpuscular Volume 99 fL (80-94); Mean Platelet Volume 8.1 um3 (7.4-10.4); Nucleated Red Blood Cells % 0; Platelet Count 136 10^3/ul (150-450); Red Blood Count 3.46 10^6/ul (4.0-5.4); Red Cell Distribution Width 13 % (10.5-15); White Blood Count 4.5 10^3/ul (3.5-10.8)
--- NOTE | 2017-08-12 20:41 | RAD ---
Indication: Preop arterial occlusion. Single frontal view of the chest performed at 2019 hours was reviewed. Comparison is made with previous exam dated October 11, 2017. Cardiomegaly. Patient is status post tracer thoracotomy. Right base atelectasis is noted. Pacemaker leads are in place. IMPRESSION: CARDIOMEGALY WITHOUT DEFINITE PNEUMONIA. RIGHT BASILAR ATELECTASIS IS NOTED. PACEMAKER LEADS ARE IN PLACE.
[2017-08-12 21:04] LABS: EGFR Non-African American 56.1 (>60)
--- NOTE | 2017-08-12 21:47 | RAD ---
Indication: Right foot and leg pain. Noninvasive Lower extremity arterial study was performed. Right ankle-brachial index could not be obtained due to noncompressible vessels. The left ankle-brachial index is 1.16. Doppler interrogation demonstrates triphasic waveform in the right femoral artery, superficial femoral artery and popliteal artery with monophasic waveforms in the posterior tibial and dorsalis pedis arteries. The left lower extremity demonstrates Doppler signal to be triphasic and the left femoral common femoral, femoral and vertebral arteries. Biphasic waveforms are noted in the left posterior tibial and dorsalis pedis arteries. Plethysmography demonstrates sharp upstroke and rather symmetric volumes. IMPRESSION: Ankle-brachial index in the right lower extremity could not BE obtained due to noncompressible vessels making the examination less reliable. Left ankle-brachial index is 1.16. Monophasic waveforms are noted in the right dorsalis pedis and posterior tibial artery.
[2017-08-12 22:41] LABS: Urine Appearance Clear; Urine Blood Negative (Negative); Urine Color Yellow; Urine Ketones Negative (Negative); Urine Protein Negative (Negative); Urine Urobilinogen Negative (Negative)
[2017-08-13] MEDS ORDERED: fentaNYL* 50 MCG/ML 2 ML VIAL (100 MCG VIAL) IV SLOW PU ONE (01:14)
[2017-08-13] MEDS ORDERED: Clopidogrel TAB* 300 MG PO ONE (01:29)
[2017-08-13] MEDS ORDERED: Rosuvastatin (NF) 20 MG TAB PO ONE (01:30)
[2017-08-13 03:24] VITALS: BP 134/104
== END 2017-08-13 03:23 | disposition short-term general hospital (02) ==
LOC: ED 17:14
DX: I99.8 Other disorder of circulatory system (principal); M79.671 Pain in right foot; I73.9 Peripheral vascular disease, unspecified; I51.7 Cardiomegaly; J98.11 Atelectasis; Z95.0 Presence of cardiac pacemaker; Z79.01 Long term (current) use of anticoagulants; Z88.8 Allergy status to other drugs, medicaments and biological substances
CPT/HCPCS: 36415; 71045; 80053; 81003; 83605; 84443; 84484; 85025; 86140; 93005; 93923; 96374; 99285; A9270-GY; J3010

== ENCOUNTER 2017-10-23 10:27 | Inpatient (IN) | payer MEDICARE ==
--- OUTSIDE RECORDS SUMMARY | 2017-10-23 11:34 | XMS REPORT ---
:1935 External Reference #:[id number] Author Organization [facility] Address [address] [place] [address] Phone [phone] Care Team Providers Name Role Phone Hugh Lockett MD Care Team Information Marketing Production Coordinator Unavailable Hugh Lockett MD Primary Care Physician Unavailable Payers Type Date Identification Numbers Payment Provider Subscriber Medicare Primary Policy Number: [id number] Medicare Cipriano Cantu PayID: [id number] [address] [place] [address] Medigap Part B Policy Number: [id number] [facility] Cipriano Cantu PayID: [id number] [address] [place] [address] Medigap Part B Expires: 2011 Policy Number: [place] [id number] Ins Co PayID: [id number] [address] [address] [place] [address] Problems Date Description Provider Status Onset: 02/08/2013 Dizziness and giddiness Lanie Rosa M.D. Active Onset: 02/08/2013 Atrial fibrillation Lanie Rosa M.D. Active Onset: 02/08/2013 Sinus node dysfunction Lanie Rosa M.D. Active Onset: 02/08/2013 Cardiac pacemaker in situ Lanie Rosa M.D. Active Onset: 02/08/2013 Hypoxemia Lanie Rosa M.D. Active Onset: 02/08/2013 Diarrhea Lanie Rosa M.D. Active Onset: 02/17/2013 Obstructive sleep apnea syndrome Lanie Rosa M.D. Active Onset: 05/11/2013 Edema Lanie Rosa M.D. Active Onset: 05/11/2013 Dyspnea Lanie Rosa M.D. 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 Active Onset: 06/06/2013 Pain in limb Lanie Rosa M.D. Active Onset: 06/06/2013 Congestive heart failure Lanie Rosa M.D. Active Onset: 06/06/2013 Renal failure syndrome Lanie Rosa M.D. Active Onset: 07/18/2013 Chronic ischemic heart disease Lanie Rosa M.D. Active Onset: 03/22/2014 Aortic valve disorder Lanie Rosa M.D. Active Onset: 03/22/2014 Heart valve replacement Lanie Rosa M.D. Active Onset: 04/28/2014 Mitral valve disorder Lanie Rosa M.D. Active Onset: 04/28/2014 Tricuspid valve disorder, non-rheumatic Lanie Rosa M.D. Active Onset: 10/17/2014 Coronary arteriosclerosis Lanie Rosa M.D. Active Onset: 01/16/2015 Arteriosclerosis of coronary artery Lanie Rosa M.D. Active bypass graft Onset: 01/16/2015 Chronic diastolic heart failure Lanie Rosa M.D. Active Onset: 01/16/2015 Transplantation of heart valve Lanie Rosa M.D. Active Onset: 04/03/2015 Chronic atrial fibrillation Lanie Rosa M.D. Active Onset: 09/10/2015 Paroxysmal atrial fibrillation Lanie Rosa M.D. Active Onset: 09/10/2015 Essential hypertension Lanie Rosa M.D. Active Onset: 09/10/2015 Chest pain Lanie Rosa M.D. Active Onset: 08/12/2016 Complete atrioventricular block Lanie Rosa M.D. Active Family History Date Family Member(s) Problem(s) Comments General Heart Disease General Cancer Social History Type Date Description Comments Marital Status Occupation Retired Cigarette Use Never Smoked Cigarettes Pt denies ever smoking cigars, pipe, e-cigarettes, or chewing tobacco. ETOH Use Denies alcohol use Smoking Patient has never smoked Recreational Drug Use Never Used Drugs Daily Caffeine Consumes on average 2 cups of regular coffee per day Exercise Type/Frequency Exercises rarely Allergies, Adverse Reactions, Alerts Date Description Reaction Status Severity Comments 02/04/2012 Coumadin active Moderate to Severe Very Sensitive 02/04/2012 Nitroglycerin EXTREME LOW BLOOD active Severe PRESSURE 02/04/2012 Multaq FATIGUE active 02/04/2012 Lopressor FATIGUE active Moderate 02/04/2012 Welchol constipation, mild active myalgias 02/04/2012 Niacin HIVES, ok with ASA active Mild 02/04/2012 Lipitor WEAKNESS active 02/04/2012 Zocor WEAKNESS active 02/11/2013 Fish Oil petechiae? active 02/11/2013 Tikosyn VT active Severe 09/25/2017 Xarelto active blood clots 02/04/2012 Flomax LIGHTHEADED, inactive Moderate FATIGUE Medications Medication Date Status Form Strength Qnty SIG Indications Ordering Provider Rosuvastatin 04/17 Active Tablets 5mg 90tab 1 tab by Lanie s mouth [place], every day M.DGaby Spironolactone Active Tablets 25mg 45tab 1 tab Lanie / s daily Laura Rosa Docusate Sodium Active Capsules 100mg 60cap prn Unknown /0000 s Omeprazole Active 20mg 2 cap po Unknown / qd Am Triamcinolone Active Cream 0.1% 30gm prn Unknown Acetonide / Tylenol Extra Active 650mg 1-2 tabs Unknown Strength /0000 daily as needed Oxygen Active Misc 1unit 2 l nc at Unknown /0000 s bedtime Levothyroxine Active Tablets 75mcg 1 by mouth [place], Sodium /0000 every day( MD Hugh dose increase 05/29/14) Methocarbamol Active 500mg 1 tab Unknown /0000 three times a day as needed (back spasm) Multivitamins Active Capsules 1 by mouth Unknown /0000 every day Prochlorperazine Active Tablets 5mg 1 tablet [place], Maleate /0000 po as MD Hugh needed for nausea Fluticasone Active Suspension 50mcg/Act 2 sprays Unknown each nostril daily Tamsulosin HCL Active Capsules 0.4mg 1 by mouth Unknown every day Imodium A-D Active Tablets 2mg 1 tablet Unknown po once daily ( Dr. kerns) Carvedilol Active Tablets 3.125mg Take One Unknown Tablet By Mouth Twice A Day Cpap Active Unknown Mylanta Active Suspension 200-200-2 every 4 0mg/5ML hours as needed Budesonide Active Caps DR 3mg 1 by mouth Unknown Part 2-3 every day prn Calcium + D Active 600mg/400 Unknown mg Clopidogrel Active Tablets 75mg 1 by mouth Unknown Bisulfate every day Isosorbide Active Tablets 30mg 1 by mouth Unknown Dinitrate every day Diclofenac Sodium Active Gel 1% apply 2 grams to affected area twice daily Lomotil Active Tablets 2.5-0.025 take 1 Unknown mg tablet by mouth four times daily as needed maximum daily dose of 4 per day Lidocaine PA Active patch- on x 12 hrs off x 12 hrs Lorazepam Active Tablets 0.5mg Q 8 hrs prn Torsemide Active Tablets 20mg 1 by mouth Unknown every day Tramadol HCL Active Tablets 50mg 1 tablets Unknown / by mouth every 6 hours as needed pain Warfarin Sodium Active Tablets 1mg take every day or as directed Furosemide 02/07 Hx Tablets 20mg 90tab 1 by mouth Lanie s every [place], - other day M.D. 09/24 Lisinopril 01/21 Hx Tablets 10mg 90tab 1/ 2tab by Lanie s mouth Shelley, - every day M.D. 09/25 Crestor 01/18 Hx Tablets 10mg 45tab 1/2 tab by Lanie s mouth [place], - every day M.D. 04/17 Amiodarone HCL 12/13 Hx Tablets 200mg 90tab 1 by mouth Lanie s every day [place], - M.D. 05/06 Furosemide 09/30 Hx Tablets 20mg 30tab One tablet s po every [place], - odd day of M.D. 04/21 the Hydrochlorothiazi 05/12 Hx Tablets 25mg 90tab 1 po qd Lanie s Shelley, - M.D. 09/30 Xarelto 05/11 Hx Tablets 15mg 90tab 1 tab by s mouth Shelley, - daily with M.D. 09/24 meal Atenolol 04/29 Hx Tablets 25mg 270ta 2 po every bs Am, 1 po [place], - every PM M.D. 02/08 Metoprolol 02/03 Hx Tablets ER 25mg 90tab 1 po qd Lanie Succinate 24HR s Shelley, - M.D. 04/29 Calcium 500 + D Hx Tablets 500-125mg 1 po qod / -Unit - 04/21 Vitamins Hx Tablets 1 po qd Unknown /0000 - 04/21 Furosemide Hx Tablets 40mg 45tab 1/2 tablet s (20 mg) Shelley, - every M.D. 02/07 /2015 alternatin g with spironolac tone(Mon, Wed, and Fri) Cephalexin Hx Capsules 500mg 21cap 1 po tid Unknown / s for 10 - days 07/17 Tramadol HCL Hx Tablets 50mg 1 tab po q Unknown / 4hrs prn - for pain 03/21 Finasteride Hx Tablets 5mg 90tab 1 po qd Unknown / s - 07/17 Synthroid Hx Tablets 25mcg 30tab 1 by mouth Unknown / s every day - 06/10 Finasteride 00 Hx Tablets 5mg 90tab 1 by mouth Unknown /0000 s every day - 10/04 Calcium 600 + D Hx Tablets 600-200mg 1 by mouth Unknown / -Unit every day - 01/03 Atenolol Hx Tablets 25mg 1 tab vincent Lockett, /0000 daily MD Hugh - 01/09 Calcium 600+D Hx Tablets 600-400mg once a day Unknown /0000 -Unit - 02/06 Bismuth Hx Chewtabs 262mg 1 tab 4 Unknown Subsalicylate /0000 times a - day 01/04 Carvedilol Hx Tablets 3.125mg 1 by mouth Unknown /0000 twice a - day 01/04 Ranitidine HCL Hx Tablets 300mg Chandrika, / MD Hugh - 09/24 Furosemide Hx Tablets 40mg 1 by mouth Unknown /0000 every day - 09/24 Medications Administered in Office Medication Date Status Form Strength Qnty SIG Indications Ordering Provider Inj, Administered Injection Lanie Regadenoson, 013 [place], 0.1 MG M.D. Technetium TC Administered Injection Lanie 99M 013 [place], Tetrofosmin, M.D. Per Unit Dose Up To 40 Millicuries Vital Signs Date Vital Result Comment 09/25/2017 Height 61.5 inches 5'1.50" Weight 119.00 lb with shoes BP Systolic Sitting 138 mmHg Rue reg cuff BP Diastolic Sitting 74 mmHg Rue reg cuff Respiratory Rate 16 /min BMI (Body Mass Index) 22.1 kg/m2 Ejection Fraction 55-60% 06/12/2017-echo 03/06/2017 Height 61.5 inches 5'1.50" Weight 134.00 lb w/ shoes Heart Rate 84 /min reg BP Systolic Sitting 108 mmHg Rue, reg cuff BP Diastolic Sitting 66 mmHg Rue, reg cuff BP Systolic Standing 104 mmHg Rue BP Diastolic Standing 64 mmHg Rue Respiratory Rate 16 /min BMI (Body Mass Index) 24.9 kg/m2 Ejection Fraction 50-55% as of 04/30/15 echo 08/12/2016 Height 61.5 inches 5'1.50" Weight 142.00 lb with shoes Heart Rate 80 /min BP Systolic Sitting 130 mmHg Lue reg cuff BP Diastolic Sitting 70 mmHg Lue reg cuff BP Systolic Standing 130 mmHg Lue reg cuff BP Diastolic Standing 88 mmHg Lue reg cuff Respiratory Rate 17 /min BMI (Body Mass Index) 26.4 kg/m2 Ejection Fraction 50-55% date 04/30/15 ECHO 03/04/2016 Height 61.5 inches 5'1.50" Weight 138.00 lb with shoes Heart Rate 68 /min BP Systolic Sitting 130 mmHg Lue reg cuff BP Diastolic Sitting 74 mmHg Lue reg cuff BP Systolic Standing 136 mmHg Lue reg cuff BP Diastolic Standing 88 mmHg Lue reg cuff Respiratory Rate 16 /min BMI (Body Mass Index) 25.6 kg/m2 Ejection Fraction 50-55% 04/30/2015 02/08/2016 Height 61.5 inches 5'1.50" Weight 136.75 lb with shoes Heart Rate 70 /min BP Systolic Sitting 120 mmHg Rue reg cuff BP Diastolic Sitting 88 mmHg Rue reg cuff BP Systolic Standing 130 mmHg Rue reg cuff BP Diastolic Standing 90 mmHg Rue reg cuff Respiratory Rate 17 /min BMI (Body Mass Index) 25.4 kg/m2 Ejection Fraction 50-55% 04/30/2015 01/04/2016 Height 61.5 inches 5'1.50" Weight 134.50 lb with shoes Heart Rate 80 /min BP Systolic Sitting 110 mmHg Ra reg cuff BP Diastolic Sitting 74 mmHg Ra reg cuff BP Systolic Standing 126 mmHg Ra reg cuff BP Diastolic Standing 82 mmHg Ra reg cuff Respiratory Rate 17 /min BMI (Body Mass Index) 25.0 kg/m2 Ejection Fraction 50-55% date 04/30/2015 ECHO 10/10/2015 Height 61.5 inches 5'1.50" Weight 139.00 lb with shoes Heart Rate 80 /min irreg BP Systolic Sitting 122 mmHg LA reg cuff BP Diastolic Sitting 62 mmHg LA reg cuff BP Systolic Standing 124 mmHg LA BP Diastolic Standing 70 mmHg LA Respiratory Rate 18 /min O2 % BldC Oximetry 98 % BMI (Body Mass Index) 25.8 kg/m2 Ejection Fraction 50-55% 04/30/15 09/10/2015 Height 61.5 inches 5'1.50" Weight 142.00 lb with shoes Heart Rate 84 /min BP Systolic Sitting 116 mmHg LA reg cuff BP Diastolic Sitting 70 mmHg LA reg cuff BP Systolic Standing 110 mmHg LA reg cuff BP Diastolic Standing 66 mmHg LA reg cuff BMI (Body Mass Index) 26.4 kg/m2 Ejection Fraction 50-55% 04/30/15 05/07/2015 Height 61.5 inches 5'1.50" Weight 139.00 lb with shoes Heart Rate 80 /min BP Systolic Sitting 110 mmHg LA reg cuff BP Diastolic Sitting 84 mmHg LA reg cuff BP Systolic Standing 106 mmHg LA reg cuff BP Diastolic Standing 78 mmHg LA reg cuff Respiratory Rate 17 /min BMI (Body Mass Index) 25.8 kg/m2 04/03/2015 Height 61.5 inches 5'1.50" Weight 132.00 lb with shoes Heart Rate 70 /min BP Systolic Sitting 116 mmHg LA, reg cuff BP Diastolic Sitting 78 mmHg LA, reg cuff BP Systolic Standing 112 mmHg LA BP Diastolic Standing 80 mmHg LA Respiratory Rate 16 /min BMI (Body Mass Index) 24.5 kg/m2 Ejection Fraction 55-60% 08/25/14 01/16/2015 Height 61.5 inches 5'1.50" Weight 135.00 lb w/o shoes Heart Rate 82 /min irreg BP Systolic Sitting 136 mmHg Rue, reg cuff BP Diastolic Sitting 86 mmHg Rue, reg cuff BP Systolic Standing 132 mmHg Rue BP Diastolic Standing 88 mmHg Rue Respiratory Rate 20 /min O2 % BldC Oximetry 98 % on Ra BMI (Body Mass Index) 25.1 kg/m2 Ejection Fraction 55-60% as of 08/25/14 echo 10/17/2014 Height 61.5 inches 5'1.50" Weight 134.75 lb Heart Rate 64 /min BP Systolic Sitting 124 mmHg LA reg cuff BP Diastolic Sitting 80 mmHg LA reg cuff BP Systolic Standing 120 mmHg LA BP Diastolic Standing 80 mmHg LA Respiratory Rate 16 /min BMI (Body Mass Index) 25.0 kg/m2 Ejection Fraction 55-60% 08/25/14 06/12/2014 Height 61.5 inches 5'1.50" Weight 142.69 lb with out shoes Heart Rate 60 /min BP Systolic Sitting 134 mmHg Ra reg cuff BP Diastolic Sitting 68 mmHg Ra reg cuff BP Systolic Standing 130 mmHg Ra reg cuff BP Diastolic Standing 62 mmHg Ra reg cuff Respiratory Rate 16 /min BMI (Body Mass Index) 26.5 kg/m2 05/19/2014 Height 61.5 inches 5'1.50" Weight 138.00 lb no shoes Heart Rate 78 /min BP Systolic Sitting 132 mmHg LA, reg cuff BP Diastolic Sitting 82 mmHg LA, reg cuff BP Systolic Standing 130 mmHg LA BP Diastolic Standing 86 mmHg LA Respiratory Rate 16 /min BMI (Body Mass Index) 25.6 kg/m2 05/10/2014 Height 61.5 inches 5'1.50" Weight 135.31 lb no shoes Heart Rate 88 /min BP Systolic Sitting 128 mmHg LA, reg cuff BP Diastolic Sitting 84 mmHg LA, reg cuff BP Systolic Standing 124 mmHg LA BP Diastolic Standing 86 mmHg LA Respiratory Rate 16 /min BMI (Body Mass Index) 25.2 kg/m2 04/28/2014 Height 61.5 inches 5'1.50" Weight 140.00 lb without shoes Heart Rate 80 /min BP Systolic Sitting 138 mmHg LA, reg cuff BP Diastolic Sitting 70 mmHg LA, reg cuff BP Systolic Standing 136 mmHg LA, reg cuff BP Diastolic Standing 78 mmHg LA, reg cuff Respiratory Rate 19 /min BMI (Body Mass Index) 26.0 kg/m2 03/22/2014 Height 61.5 inches 5'1.50" Weight 135.00 lb Heart Rate 56 /min BP Systolic Sitting 124 mmHg LA reg cuff BP Diastolic Sitting 60 mmHg LA reg cuff BP Systolic Standing 128 mmHg LA reg cuff BP Diastolic Standing 68 mmHg LA reg cuff Respiratory Rate 18 /min BMI (Body Mass Index) 25.1 kg/m2 10/12/2013 Height 61.5 inches 5'1.50" Weight 132.00 lb Heart Rate 56 /min BP Systolic Sitting 132 mmHg Ra reg cuff BP Diastolic Sitting 74 mmHg Ra reg cuff BP Systolic Standing 128 mmHg BP Diastolic Standing 70 mmHg Respiratory Rate 16 /min BMI (Body Mass Index) 24.5 kg/m2 07/18/2013 Height 61.5 inches 5'1.50" Weight 130.00 lb no shoes Heart Rate 52 /min BP Systolic Sitting 126 mmHg LA, reg cuff BP Diastolic Sitting 78 mmHg LA, reg cuff BP Systolic Standing 132 mmHg LA BP Diastolic Standing 78 mmHg LA Respiratory Rate 16 /min BMI (Body Mass Index) 24.2 kg/m2 06/06/2013 Height 62 inches 5'2" Weight 141.00 lb with slippers (132 at [facility] 06/01/13 9 lbs gain) Heart Rate 60 /min sit and reg BP Systolic Sitting 140 mmHg R arm reg cuff BP Diastolic Sitting 80 mmHg R arm reg cuff BP Systolic Standing 134 mmHg R arm reg cuff BP Diastolic Standing 70 mmHg R arm reg cuff Respiratory Rate 17 /min BMI (Body Mass Index) 25.8 kg/m2 05/13/2013 Heart Rate 60 /min regular BP Systolic Sitting 132 mmHg Ra, regular cuff BP Diastolic Sitting 76 mmHg Ra, regular cuff BP Systolic Standing 132 mmHg Ra BP Diastolic Standing 76 mmHg Ra Respiratory Rate 16 /min 05/11/2013 Height 61 inches 5'1" Weight 132.00 lb Heart Rate 58 /min BP Systolic Sitting 132 mmHg left arm, reg cuff BP Diastolic Sitting 70 mmHg left arm, reg cuff BP Systolic Standing 130 mmHg left arm, reg cuff BP Diastolic Standing 70 mmHg left arm, reg cuff Respiratory Rate 16 /min BMI (Body Mass Index) 24.9 kg/m2 02/22/2013 Height 60 inches 5'0" Weight 128.00 lb down 2 lbs Heart Rate 60 /min BP Systolic Sitting 100 mmHg BP Diastolic Sitting 50 mmHg BP Systolic Standing 104 mmHg BP Diastolic Standing 68 mmHg Respiratory Rate 16 /min BMI (Body Mass Index) 25.0 kg/m2 02/11/2013 Weight 130.00 lb with sneakers, up 3 pounds Heart Rate 50 /min regular BP Systolic 108 mmHg Ra, regular cuff BP Diastolic 60 mmHg Ra, regular cuff BP Systolic Sitting 106 mmHg Ra BP Diastolic Sitting 80 mmHg Ra Respiratory Rate 16 /min 02/08/2013 Height 61 inches 5'1" Weight 127.00 lb Heart Rate 56 /min BP Systolic Sitting 102 mmHg LA reg cuff BP Diastolic Sitting 70 mmHg LA reg cuff BP Systolic Standing 102 mmHg LA BP Diastolic Standing 74 mmHg LA BMI (Body Mass Index) 24.0 kg/m2 Results Test Date Test Result H/L Range Note CBC No Diff 09/19/2015 White Blood Count 4.5 10^3/uL 3.5-10.8 Red Blood Count 3.59 10^6/uL Low 4.0-5.4 Hemoglobin 11.2 g/dL Low 14.0-18.0 Hematocrit 35 % Low 42-52 Mean Corpuscular Volume 97 fL High 80-94 Mean Corpuscular Hemoglobin 31 pg 27-31 Mean Corpuscular HGB Conc 32 g/dL 31-36 Red Cell Distribution Width 13 % 10.5-15 Platelet Count 144 10^3/uL Low 150-450 Mean Platelet Volume 9 um3 7.4-10.4 Inr/Protime 09/19/2015 Inr 2.10 High 0.89-1.11 Laboratory test finding 09/19/2015 Partial Thrombo Time 42.2 seconds High 26.0-36.3 PTT Basic Metabolic Panel 09/10/2015 Sodium 138 mmol/L 133-145 Potassium 4.5 mmol/L 3.5-5.0 Chloride 106 mmol/L 101-111 Co2 Carbon Dioxide 25 mmol/L 22-32 Anion Gap 7 mmol/L 2-11 Glucose 85 mg/dL 70-100 Blood Urea Nitrogen 30 mg/dL High 6-24 Creatinine 1.28 mg/dL High 0.67-1.17 BUN/Creatinine Ratio 23.4 High 8-20 Calcium 9.6 mg/dL 8.6-10.3 Egfr Non- 53.8 >60 Egfr 69.2 >60 1 Laboratory test finding 09/10/2015 Magnesium 2.0 mg/dL 1.9-2.7 2 TSH (Thyroid Stim Horm) 2.16 ?IU/mL 0.34-5.60 3 Laboratory test 06/28/2015 Surgical Interface SEE RESULT BELOW 4 finding Order Basic Metabolic Panel 05/15/2014 Sodium 131 mmol/L Low 133-145 5 Potassium 4.4 mmol/L 3.5-5.0 5 Chloride 99 mmol/L Low 101-111 5 Co2 Carbon Dioxide 26 mmol/L 22-32 5 Anion Gap 6 mmol/L 2-11 5 Glucose 92 mg/dL 70-100 5 Blood Urea Nitrogen 42 mg/dL High 6-24 5 Creatinine 1.75 mg/dL High 0.67-1.17 5 BUN/Creatinine Ratio 24.0 High 8-20 5 Calcium 9.5 mg/dL 8.6-10.3 5 Egfr Non- 37.7 >60 5 Egfr 48.5 >60 5, 6 Laboratory test finding 05/08/2014 B Type Natriuretic Peptide 176 pg/mL 7 Basic Metabolic Panel 05/08/2014 Sodium 134 mmol/L 133-145 Potassium 4.7 mmol/L 3.5-5.0 Chloride 100 mmol/L Low 101-111 Co2 Carbon Dioxide 26 mmol/L 22-32 Anion Gap 8 mmol/L 2-11 Glucose 89 mg/dL 70-100 Blood Urea Nitrogen 49 mg/dL High 6-24 Creatinine 1.93 mg/dL High 0.67-1.17 BUN/Creatinine Ratio 25.4 High 8-20 Calcium 9.5 mg/dL 8.6-10.3 Egfr Non- 33.7 >60 Egfr 43.3 >60 8 Laboratory test finding 12/05/2013 Ast 35 U/L 13-39 9, 10 TSH (Thyroid Stimulating Horm) 9.38 IU/mL High 0.34-5.60 9, 11 Free T4 By Dialysis 1.6 ng/dL 0.8-2.0 9, 12 Basic Metabolic Panel 06/21/2013 Sodium 135 mmol/L 133-145 Potassium 4.2 mmol/L 3.7-5.6 Chloride 100 mmol/L Low 101-111 Co2 Carbon Dioxide 29 mmol/L 22-32 Anion Gap 6 mmol/L 2-11 Glucose 82 mg/dL 70-100 Blood Urea Nitrogen 25 mg/dL High 6-24 Creatinine 1.24 mg/dL High 0.67-1.17 BUN/Creatinine Ratio 20.2 High 8-20 Calcium 9.4 mg/dL 8.6-10.3 Egfr Non- 56.2 >60 Egfr 72.3 >60 13 Laboratory test finding 12/10/2012 Inr 1.97 High 0.87-0.97 14 Basic Metabolic Panel 12/10/2012 Sodium 137 mmol/L 133-145 Potassium 4.3 mmol/L 3.5-5.0 Chloride 105 mmol/L 101-111 Co2 Carbon Dioxide 26.0 mmol/L 22-32 Anion Gap 6.0 mmol/L 2-11 Glucose 95 mg/dL 70-100 Blood Urea Nitrogen 32 mg/dL High 6-24 Creatinine 1.50 mg/dL High 0.50-1.40 BUN/Creatinine Ratio 21.3 High 8-20 Calcium 9.8 mg/dL 8.1-9.9 Egfr Non- 45.1 >60 Egfr 58.1 >60 15 Urinalysis 09/30/2012 Urine Color Yellow Urine Appearance Clear Urine Specific [place] 1.015 1.010-1.030 Urine Esterase Negative Negative Urine Nitrate Negative Negative Urine Urobilinogen Negative E.U./dL Negative Urine Protein 1+ mg/dL Negative Urine pH 7.0 5-9 Urine Blood Negative Negative Urine Ketones Negative mg/dL Negative Urine Bilirubin Negative Negative Urine Glucose Negative mg/dL Negative Urine Microscopic 09/30/2012 Urine Casts 1+ Hyaline /lpf None Seen Urine WBC None Seen None Seen Urine RBC None Seen None Seen Urine Epithelial Cells 1+ Squamous /hpf None Seen Ua Comments Sperm Laboratory test finding 09/30/2012 Creatine Kinase 197 U/L 0-200 CBC Auto Diff 09/30/2012 White Blood Count 4.3 10^3/uL Low 4.8-10.8 Red Blood Count 3.67 10^6/uL Low 4.0-5.4 Hemoglobin 11.8 g/dL Low 14.0-18.0 Hematocrit 36 % Low 42-52 Mean Corpuscular Volume 97 fL High 80-94 Mean Corpuscular Hemoglobin 32 pg High 27-31 Mean Corpuscular HGB Conc 33 g/dL 31-36 Red Cell Distribution Width 15 % 10.5-15 Platelet Count 112 10^3/uL Low 150-450 Mean Platelet Volume 10 um3 7.4-10.4 Abs Neutrophils 2.5 10^3/uL 1.5-7.7 Abs Lymphocytes 1.0 10^3/uL 1.0-4.8 Abs Monocytes 0.6 10^3/uL 0-0.8 Abs Eosinophils 0.1 10^3/uL 0-0.6 Abs Basophils 0 10^3/uL 0-0.2 Abs Nucleated RBC 0 10^3/uL Granulocyte % 58.8 % 38-83 Lymphocyte % 24.4 % Low 25-47 Monocyte % 14.6 % High 1-9 Eosinophil % 1.3 % 0-6 Basophil % 0.9 % 0-2 Nucleated Red Blood Cells % 0 Laboratory test finding 09/30/2012 Erythrocyte Sed Rate 20 mm/Hr 0-40 Urine Culture And 09/30/2012 Urine Culture (SEE NOTE) 16 Sensitivities Basic Metabolic Panel 08/02/2012 Sodium 134 mmol/L 133-145 Potassium 4.6 mmol/L 3.5-5.0 Chloride 98 mmol/L Low 101-111 Co2 Carbon Dioxide 30.0 mmol/L 22-32 Anion Gap 6.0 mmol/L 2-11 Glucose 102 mg/dL High 70-100 Blood Urea Nitrogen 20 mg/dL 6-24 Creatinine 1.00 mg/dL 0.50-1.40 BUN/Creatinine Ratio 20.0 8-20 Calcium 9.8 mg/dL 8.1-9.9 Egfr Non- 72.1 >60 Egfr 92.7 >60 17 CBC Auto Diff 08/02/2012 White Blood Count 5.0 10^3/uL 4.8-10.8 Red Blood Count 4.13 10^6/uL 4.0-5.4 Hemoglobin 13.3 g/dL Low 14.0-18.0 Hematocrit 40 % Low 42-52 Mean Corpuscular Volume 97 fL High 80-94 Mean Corpuscular Hemoglobin 32 pg High 27-31 Mean Corpuscular HGB Conc 33 g/dL 31-36 Red Cell Distribution Width 15 % 10.5-15 Platelet Count 128 10^3/uL Low 150-450 Mean Platelet Volume 9 um3 7.4-10.4 Abs Neutrophils 2.6 10^3/uL 1.5-7.7 Abs Lymphocytes 1.6 10^3/uL 1.0-4.8 Abs Monocytes 0.7 10^3/uL 0-0.8 Abs Eosinophils 0.1 10^3/uL 0-0.6 Abs Basophils 0 10^3/uL 0-0.2 Abs Nucleated RBC 0 10^3/uL Granulocyte % 52.0 % 38-83 Lymphocyte % 31.6 % 25-47 Monocyte % 13.2 % High 1-9 Eosinophil % 2.5 % 0-6 Basophil % 0.7 % 0-2 Nucleated Red Blood Cells % 0 Laboratory test finding 08/02/2012 B Type Natriuretic 616.0 pg/mL High 0- 100 18 Peptide Laboratory test finding 07/12/2012 B Type Natriuretic 587.0 pg/mL High 0- 100 Peptide Basic Metabolic Panel 07/12/2012 Sodium 134 mmol/L 133-145 Potassium 4.2 mmol/L 3.5-5.0 Chloride 100 mmol/L Low 101-111 Co2 Carbon Dioxide 26.0 mmol/L 22-32 Anion Gap 8.0 mmol/L 2-11 Glucose 83 mg/dL 70-100 Blood Urea Nitrogen 26 mg/dL High 6-24 Creatinine 1.40 mg/dL 0.50-1.40 BUN/Creatinine Ratio 18.6 8-20 Calcium 9.6 mg/dL 8.1-9.9 Egfr Non- 49.0 >60 Egfr 63.0 >60 19 Hemoglobin/Hematacrit 07/06/2012 Hemoglobin 11.6 g/dL Low 14.0-18.0 Hematocrit 35 % Low 42-52 Laboratory test finding 07/06/2012 B Type Natriuretic 579.0 pg/mL High 0- 100 Peptide Basic Metabolic Panel 07/06/2012 Sodium 137 mmol/L 133-145 Potassium 4.3 mmol/L 3.5-5.0 Chloride 103 mmol/L 101-111 Co2 Carbon Dioxide 25.0 mmol/L 22-32 Anion Gap 9.0 mmol/L 2-11 Glucose 88 mg/dL 70-100 Blood Urea Nitrogen 20 mg/dL 6-24 Creatinine 1.40 mg/dL 0.50-1.40 BUN/Creatinine Ratio 14.3 8-20 Calcium 10.0 mg/dL High 8.1-9.9 Egfr Non- 49.0 >60 Egfr 63.0 >60 20 Laboratory test finding 04/29/2012 B Type Natriuretic 667.0 pg/mL High 0- 100 Peptide Basic Metabolic Panel 04/29/2012 Sodium 137 mmol/L 133-145 Potassium 4.4 mmol/L 3.5-5.0 Chloride 100 mmol/L Low 101-111 Co2 Carbon Dioxide 31.0 mmol/L 22-32 Anion Gap 6.0 mmol/L 2-11 Glucose 132 mg/dL High 70-100 Blood Urea Nitrogen 24 mg/dL 6-24 Creatinine 1.40 mg/dL 0.50-1.40 BUN/Creatinine Ratio 17.1 8-20 Calcium 9.5 mg/dL 8.1-9.9 Egfr Non- 49.0 >60 Egfr 63.0 >60 21 Laboratory test finding 04/29/2012 Ast 53 U/L High 12-42 Troponin I 0.02 ng/mL 0-0.06 22 Laboratory test 04/24/2012 C Reactive Protein 0.6 mg/dL High Less than 0.5 finding Laboratory test 04/24/2012 Erythrocyte Sed Rate 13 mm/Hr 0-40 finding Laboratory test 04/23/2012 Inr 1.15 0.82-1.17 23 finding Activated Partial Thrombo Time 34.3 sec 22.18-37.18 Basic Metabolic Panel 04/23/2012 Sodium 138 mmol/L 133-145 Potassium 4.1 mmol/L 3.5-5.0 Chloride 106 mmol/L 101-111 Co2 Carbon Dioxide 24.0 mmol/L 22-32 Anion Gap 8.0 mmol/L 2-11 Glucose 91 mg/dL 70-100 Blood Urea Nitrogen 18 mg/dL 6-24 Creatinine 0.80 mg/dL 0.50-1.40 BUN/Creatinine Ratio 22.5 High 8-20 Calcium 9.0 mg/dL 8.1-9.9 Egfr Non- 93.5 >60 Egfr 120.2 >60 24 Manual Differential 04/23/2012 Neutrophil % 50.0 % 38-83 Band % 0 % 0-8 Lymphocytes % 38.0 % 25-47 Monocytes % 11.0 % 0-13 Eosinophils % 1.0 % 0-6 Basophil % 0 % 0-2 Reactive Lymph % 0 % 0-6 Metamyelocytes % 0 % 0-2 Myelocytes % 0 % 0-1 Promyelocytes % 0 % Blast % 0 % Hypochromasia 1+ CBC Auto Diff 04/23/2012 White Blood Count 3.6 10^3/uL Low 4.8-10.8 Red Blood Count 3.95 10^6/uL Low 4.0-5.4 Hemoglobin 12.3 g/dL Low 14.0-18.0 Hematocrit 38 % Low 42-52 Mean Corpuscular Volume 97 fL High 80-94 Mean Corpuscular Hemoglobin 31 pg 27-31 Mean Corpuscular HGB Conc 32 g/dL 31-36 Red Cell Distribution Width 14 % 10.5-15 Platelet Count 102 10^3/uL Low 150-450 Mean Platelet Volume 10 um3 7.4-10.4 Abs Neutrophils 1.8 10^3/uL 1.5-7.7 Abs Lymphocytes 1.1 10^3/uL 1.0-4.8 Abs Monocytes 0.6 10^3/uL 0-0.8 Abs Eosinophils 0.1 10^3/uL 0-0.6 Abs Basophils 0.1 10^3/uL 0-0.2 Abs Nucleated RBC 0 10^3/uL Basic Metabolic Panel 02/20/2012 Sodium 141 mmol/L 133-145 Potassium 3.8 mmol/L 3.5-5.0 Chloride 108 mmol/L 101-111 Co2 Carbon Dioxide 27.0 mmol/L 22-32 Anion Gap 6.0 mmol/L 2-11 Glucose 104 mg/dL High 70-100 Blood Urea Nitrogen 16 mg/dL 6-24 Creatinine 0.80 mg/dL 0.50-1.40 BUN/Creatinine Ratio 20.0 8-20 Calcium 9.3 mg/dL 8.1-9.9 Egfr Non- 93.5 >60 Egfr 120.2 >60 25 1 Because ethnic data is not always readily available, this report includes an eGFR for both -Americans and non- Americans. The National Kidney Disease Education Program (NKDEP) does not endorse the use of the MDRD equation for patients that are not between the ages of 18 and 70, are , have extremes of body size, muscle mass, or nutritional status, or are non- or non-. According to the National Kidney Foundation, irrespective of diagnosis, the stage of the disease is based on the level of kidney function: Stage Description GFR(mL/min/1.73 m(2)) 1 Kidney damage with normal or decreased GFR 90 2 Kidney damage with mild decrease in GFR 60-89 3 Moderate decrease in GFR 30-59 4 Severe decrease in GFR 15-29 5 Kidney failure <15 (or dialysis) 2 Copy Result to: HUGH LOCKETT ([id number]) 3 Copy Result to: HUGH LOCKETT ([id number]) 4 SEE RESULT BELOW Name: CIPRIANO CANTU Fariba : [address]: Dwaine Kerns MD Acct: [id number] Unit: [id number] AGE: 79 Location: ENDO Re06/28/15 SEX: M Status: REG REF SPEC: [id number] ARCELIA: 06/28/15-[address]: Dwaine Kerns MD REQ: [id number] RECD: 06/28/15-1318 STATUS: STEVEN MERIDA DR: Hugh Rosa MD _ ORDERED: LEVEL IV FINAL DIAGNOSIS Colon, random, biopsy: -- Collagenous colitis. CLINICAL HISTORY Colonoscopy 2000 and 2011 tics only; chronic diarrhea POST-OPERATIVE DIAGNOSIS Colonoscopy to cecum - ileocecal valve well seen, tortuous colon. No irritable bowel disease, mass, carcinoma, or polyp. Random biopsy mid colon. No positive findings. Conclusion/Plan: negative colonoscopy, biopsy done GROSS DESCRIPTION The specimen is received in formalin labeled, Random Colon Biopsies, and consists of a 0.6 x 0.4 x 0.1 cm aggregate of boucher-pink irregular soft tissue fragments, which is submitted entirely in one cassette. Signed (signature on file) Shruthi Currie MD 03/05 1152 END OF REPORT * ML=Testing performed at Main Lab DEPARTMENT OF PATHOLOGY, [address] [place] [address] Bola Appiah M.D. Director [facility] # [id number] 5 may be non-fasting - draw on 05/15/14 6 Because ethnic data is not always readily available, this report includes an eGFR for both -Americans and non- Americans. The National Kidney Disease Education Program (NKDEP) does not endorse the use of the MDRD equation for patients that are not between the ages of 18 and 70, are , have extremes of body size, muscle mass, or nutritional status, or are non- or non-. According to the National Kidney Foundation, irrespective of diagnosis, the stage of the disease is based on the level of kidney function: Stage Description GFR(mL/min/1.73 m(2)) 1 Kidney damage with normal or decreased GFR 90 2 Kidney damage with mild decrease in GFR 60-89 3 Moderate decrease in GFR 30-59 4 Severe decrease in GFR 15-29 5 Kidney failure <15 (or dialysis) 7 >100 to <200 pg/mL: likely compensated congestive heart failure (CHF) 200 to 400 pg/mL: likely moderate CHF >400 pg/mL: likely moderate to severe CHF [place] [facility] 8 Because ethnic data is not always readily available, this report includes an eGFR for both -Americans and non- Americans. The National Kidney Disease Education Program (NKDEP) does not endorse the use of the MDRD equation for patients that are not between the ages of 18 and 70, are , have extremes of body size, muscle mass, or nutritional status, or are non- or non-. According to the National Kidney Foundation, irrespective of diagnosis, the stage of the disease is based on the level of kidney function: Stage Description GFR(mL/min/1.73 m(2)) 1 Kidney damage with normal or decreased GFR 90 2 Kidney damage with mild decrease in GFR 60-89 3 Moderate decrease in GFR 30-59 4 Severe decrease in GFR 15-29 5 Kidney failure <15 (or dialysis) 9 HX AMIODARONE USE 10 HX AMIODARONE USE 11 HX AMIODARONE USE 12 Test Performed by: [facility] [place] [address] Cokeman: Noman Sosa III, M.D. 13 Because ethnic data is not always readily available, this report includes an eGFR for both -Americans and non- Americans. The National Kidney Disease Education Program (NKDEP) does not endorse the use of the MDRD equation for patients that are not between the ages of 18 and 70, are , have extremes of body size, muscle mass, or nutritional status, or are non- or non-. According to the National Kidney Foundation, irrespective of diagnosis, the stage of the disease is based on the level of kidney function: Stage Description GFR(mL/min/1.73 m(2)) 1 Kidney damage with normal or decreased GFR 90 2 Kidney damage with mild decrease in GFR 60-89 3 Moderate decrease in GFR 30-59 4 Severe decrease in GFR 15-29 5 Kidney failure <15 (or dialysis) 14 CALL RESULTS TO 4590 15 Because ethnic data is not always readily available, this report includes an eGFR for both -Americans and non- Americans. The National Kidney Disease Education Program (NKDEP) does not endorse the use of the MDRD equation for patients that are not between the ages of 18 and 70, are , have extremes of body size, muscle mass, or nutritional status, or are non- or non-. According to the National Kidney Foundation, irrespective of diagnosis, the stage of the disease is based on the level of kidney function: Stage Description GFR(mL/min/1.73 m(2)) 1 Kidney damage with normal or decreased GFR 90 2 Kidney damage with mild decrease in GFR 60-89 3 Moderate decrease in GFR 30-59 4 Severe decrease in GFR 15-29 5 Kidney failure <15 (or dialysis) 16 RUN DATE: 10/02/12 [facility] LAB LIVE PAGE 1 RUN TIME: [address] [place] [id number] Specimen Inquiry Name: SHARLACIPRIANO Fariba : [address]: Lanie Rosa MD Acct: [id number] Unit: [id number] AGE: 77 Location: [facility] Re09/30/12 SEX: M Status: REG REF SPEC: [id number] ARCELIA: 09/30/[address]: Lanie Rosa MD REQ: [id number] RECD: 09/30/12 STATUS: COMP [facility] DR: Hugh Lockett MD _ SOURCE: URINE SPDESC: ORDERED: Urine Culture QUERIES: Urine Source: Random Procedure Result Verified Site Urine Culture Final 10/02/12- 913 ML No Growth Day 2 (<1,000 CFU/mL) END OF REPORT * ML=Testing performed at Main Lab DEPARTMENT OF PATHOLOGY, [address] [place] [address] Bola Appiah M.D. Director [facility] Permit #[id number] 17 Because ethnic data is not always readily available, this report includes an eGFR for both -Americans and non- Americans. The National Kidney Disease Education Program (NKDEP) does not endorse the use of the MDRD equation for patients that are not between the ages of 18 and 70, are , have extremes of body size, muscle mass, or nutritional status, or are non- or non-. According to the National Kidney Foundation, irrespective of diagnosis, the stage of the disease is based on the level of kidney function: Stage Description GFR(mL/min/1.73 m(2)) 1 Kidney damage with normal or decreased GFR 90 2 Kidney damage with mild decrease in GFR 60-89 3 Moderate decrease in GFR 30-59 4 Severe decrease in GFR 15-29 5 Kidney failure <15 (or dialysis) 18 SDS 08/06/12 19 Because ethnic data is not always readily available, this report includes an eGFR for both -Americans and non- Americans. The National Kidney Disease Education Program (NKDEP) does not endorse the use of the MDRD equation for patients that are not between the ages of 18 and 70, are , have extremes of body size, muscle mass, or nutritional status, or are non- or non-. According to the National Kidney Foundation, irrespective of diagnosis, the stage of the disease is based on the level of kidney function: Stage Description GFR(mL/min/1.73 m(2)) 1 Kidney damage with normal or decreased GFR 90 2 Kidney damage with mild decrease in GFR 60-89 3 Moderate decrease in GFR 30-59 4 Severe decrease in GFR 15-29 5 Kidney failure <15 (or dialysis) 20 Because ethnic data is not always readily available, this report includes an eGFR for both -Americans and non- Americans. The National Kidney Disease Education Program (NKDEP) does not endorse the use of the MDRD equation for patients that are not between the ages of 18 and 70, are , have extremes of body size, muscle mass, or nutritional status, or are non- or non-. According to the National Kidney Foundation, irrespective of diagnosis, the stage of the disease is based on the level of kidney function: Stage Description GFR(mL/min/1.73 m(2)) 1 Kidney damage with normal or decreased GFR 90 2 Kidney damage with mild decrease in GFR 60-89 3 Moderate decrease in GFR 30-59 4 Severe decrease in GFR 15-29 5 Kidney failure <15 (or dialysis) 21 Because ethnic data is not always readily available, this report includes an eGFR for both -Americans and non- Americans. The National Kidney Disease Education Program (NKDEP) does not endorse the use of the MDRD equation for patients that are not between the ages of 18 and 70, are , have extremes of body size, muscle mass, or nutritional status, or are non- or non-. According to the National Kidney Foundation, irrespective of diagnosis, the stage of the disease is based on the level of kidney function: Stage Description GFR(mL/min/1.73 m(2)) 1 Kidney damage with normal or decreased GFR 90 2 Kidney damage with mild decrease in GFR 60-89 3 Moderate decrease in GFR 30-59 4 Severe decrease in GFR 15-29 5 Kidney failure <15 (or dialysis) 22 Reference Range and Interpretation: TnI (ng/ml) Interpretation Less Than 0.06 ng/mL Not supportive of diagnosis of [place] 0.06 - 0.50 ng/ml Indeterminate: suggest serial studies if clinically indicated. Greater than 0.5 ng/mL Consistent with diagnosis of [place] 23 The INR(International Normalized Ratio) was adopted by the World Health Organization (WHO) in 1982 as a standardized system of reporting PT (Prothrombin Time). The Centers for Disease Control (CDC) states that reporting of PT results in INR only is the preferred method. Recommended INR for Patients on Oral Anticoagulants Prophylaxis 2.0 - 3.0 Treatment of thrombosis 2.0 - 3.0 Prevention of embolism 2.0 - 3.0 Prevention of embolism from prosthetic heart valves 2.5 - 3.5 24 Because ethnic data is not always readily available, this report includes an eGFR for both -Americans and non- Americans. The National Kidney Disease Education Program (NKDEP) does not endorse the use of the MDRD equation for patients that are not between the ages of 18 and 70, are , have extremes of body size, muscle mass, or nutritional status, or are non- or non-. According to the National Kidney Foundation, irrespective of diagnosis, the stage of the disease is based on the level of kidney function: Stage Description GFR(mL/min/1.73 m(2)) 1 Kidney damage with normal or decreased GFR 90 2 Kidney damage with mild decrease in GFR 60-89 3 Moderate decrease in GFR 30-59 4 Severe decrease in GFR 15-29 5 Kidney failure <15 (or dialysis) 25 Because ethnic data is not always readily available, this report includes an eGFR for both -Americans and non- Americans. The National Kidney Disease Education Program (NKDEP) does not endorse the use of the MDRD equation for patients that are not between the ages of 18 and 70, are , have extremes of body size, muscle mass, or nutritional status, or are non- or non-. According to the National Kidney Foundation, irrespective of diagnosis, the stage of the disease is based on the level of kidney function: Stage Description GFR(mL/min/1.73 m(2)) 1 Kidney damage with normal or decreased GFR 90 2 Kidney damage with mild decrease in GFR 60-89 3 Moderate decrease in GFR 30-59 4 Severe decrease in GFR 15-29 5 Kidney failure <15 (or dialysis) Procedures Date CPT Code Description Status 09/25/2017 21931 EKG Tracing & Interpretation Completed 09/10/2017 89234 Pace Maker Eval W/Iterative Adjustment Single Lead Completed 09/10/2017 56102 Pace Maker Eval W/Iterative Adjustment Single Lead Completed 08/05/2017 Diabetic Foot Exam Completed 06/12/2017 87465 ECHO Transthorasic Realtime 2D W Doppler & Color Flow Completed Hosp 06/12/2017 61403 Treadmill Interp/Report Only Completed 06/12/2017 99453 Stress Test Supervsn W/Out I/R Completed 06/11/2017 13710 EKG, Interpretation Only Completed 03/04/2017 87246 Pace Maker Eval W/Iterative Adjustment Single Lead Completed 03/04/2017 06586 Pace Maker Eval W/Iterative Adjustment Single Lead Completed 08/12/2016 89202 Pace Maker Eval W/Iterative Adjustment Single Lead Completed 02/08/2016 37663 Pace Maker Eval W/Iterative Adjustment Single Lead Completed 01/04/2016 13486 EKG Tracing & Interpretation Completed 10/10/2015 08724 EKG Tracing & Interpretation Completed 09/19/2015 93963 EKG, Interpretation Only Completed 09/19/2015 11057 Cardioversion Completed 09/10/2015 99644 Pace Maker Eval W/Iterative Adjustment Single Lead Completed 09/10/2015 00187 EKG Tracing & Interpretation Completed 05/07/2015 10718 EKG Tracing & Interpretation Completed 04/30/2015 91021 ECHO Transthoracic, Real-Time 2D With Doppler And Color Completed Flow 04/03/2015 35819 Pace Maker Eval W/Iterative Adjustment Single Lead Completed 01/16/2015 29806 EKG Tracing & Interpretation Completed 10/17/2014 52330 EKG Tracing & Interpretation Completed 10/17/2014 31941 Pace Maker Eval W/Iterative Adjustment Single Lead Completed 08/25/2014 84358 ECHO Transthorasic Realtime 2D W Doppler & Color Flow Completed Hosp 08/25/2014 73199 EKG, Interpretation Only Completed 06/05/2014 56306 EKG Tracing & Interpretation Completed 05/10/2014 78115 EKG Tracing & Interpretation Completed 04/26/2014 20325 ECHO Transthoracic, Real-Time 2D With Doppler And Color Completed Flow 04/26/2014 52097 Pace Maker Eval W/Iterative Adjustment Single Lead Completed 04/26/2014 71752 Pace Maker Eval W/Iterative Adjustment Single Lead Completed 03/22/2014 59080 EKG Tracing & Interpretation Completed 11/22/2013 15056 Pace Maker Eval W/Iterative Adjustment Single Lead Completed 11/10/2013 62148 Pace Maker Eval W/Iterative Adjustment Single Lead Completed 11/09/2013 56017 Pace Maker Eval W/Iterative Adjustment Single Lead Completed 07/18/2013 04420 EKG Tracing & Interpretation Completed 05/18/2013 60078 ECHO Transthoracic, Real-Time 2D With Doppler And Color Completed Flow 05/12/2013 84310 Pace Maker Eval W/Iterative Adjustment Single Lead Completed 05/11/2013 22596 EKG Tracing & Interpretation Completed 01/27/2013 01507 Interrogation Device Eval In Person W/DR Completed Analysis,Single,Dual,Mul 12/30/2012 64209 EKG Tracing & Interpretation Completed 12/13/2012 40225 Interrogation Device Eval In Person W/DR Completed Analysis,Single,Dual,Mul 12/10/2012 45914 Cardioversion Completed 11/09/2012 84842 Interrogation Device Eval In Person W/DR Completed Analysis,Single,Dual,Mul 10/04/2012 29386 ECHO Transthoracic, Real-Time 2D With Doppler And Color Completed Flow 09/30/2012 68849 Interrogation Device Eval In Person W/DR Completed Analysis,Single,Dual,Mul 08/06/2012 46356 EKG, Interpretation Only Completed 08/02/2012 35845 EKG, Interpretation Only Completed 07/29/2012 79169 Stress Test Completed 07/29/2012 68131 Myocardial Perfusion Imaging Tomographic (Spect) Completed Multiple Studies 07/06/2012 98995 EKG Tracing & Interpretation Completed 05/11/2012 36433 Pace Maker Eval W/Iterative Adjustment Single Lead Completed 04/29/2012 36249 Doppler echo/limited or fu study Completed 04/29/2012 10912 Doppler echo/limited or fu study Completed 04/29/2012 94639 Echocardiogram, Limited Study Completed 04/29/2012 58245 Pace Maker Eval W/Iterative Adjustment Single Lead Completed 04/24/2012 35142 EKG, Interpretation Only Completed 04/23/2012 16494 EKG, Interpretation Only Completed 04/23/2012 93015 Perm Pacemaker Ventricular Completed 04/14/2012 38631 EKG Tracing & Interpretation Completed 04/03/2012 25370 EKG, Interpretation Only Completed 04/02/2012 44219 EKG, Interpretation Only Completed 04/01/2012 96657 EKG, Interpretation Only Completed 03/23/2012 14924 EKG Tracing & Interpretation Completed 02/20/2012 59893 EKG, Interpretation Only Completed 02/20/2012 42735 Cardioversion Completed 02/12/2012 24906 ECHO Transthoracic, Real-Time 2D With Doppler And Color Completed Flow 02/04/2012 40089 EKG Tracing & Interpretation Completed Encounters Type Date Location Provider CPT E/M Dx Office Visit 09/25/2017 2:40p [facility] Lanie Rosa M.D. 68433 I48.2 Event Planner R06.02 I75.021 I44.2 Z95.0 I25.810 Z95.2 I50.32 R60.0 I95.1 Office Visit 06/13/2017 3:06p [facility],susu Townsend, 85093 R07.89 Hospitalists Laura R06.02 I48.2 N18.3 Office Visit 06/12/2017 3:04p [facility],[place] [address] R07.89 Hospitalists R06.02 I48.2 N18.3 Office Visit 06/12/2017 12:40p [facility] Evangelist Sanches, 24479 R07.9 Event Planner DO FACC Office Visit 06/11/2017 3:04p [facility], Nelli Oquendo, 45328 R07.89 Hospitalists D.O. R06.02 I48.2 N18.3 Office Visit 03/06/2017 10:30a [facility] Lanie Rosa M.D. 15202 Z95.0 [facility] I48.2 I44.2 I25.810 I36.1 I34.0 R06.02 Office Visit 08/12/2016 9:00a [facility] Lanie Rosa M.D. 98061 I48.2 [facility] Z95.0 I44.2 I10 I25.810 Z95.2 I36.1 I34.0 Office Visit 03/04/2016 10:30a [facility] ESTRELLA Monk 50834PZL Z95.0 I48.2 I10 Office Visit 02/08/2016 11:00a [facility] Lanie Rosa M.D. 69111 Z95.0 [facility] I48.2 I10 R06.02 R19.7 Office Visit 01/04/2016 1:15p [facility] Lanie Rosa M.D. 88334 I48.2 Event Planner Z95.0 Office Visit 10/10/2015 10:00a [facility] ESTRELLA Monk 31074 I48.1 R94.31 Z95.0 R06.02 Office Visit 09/10/2015 10:30a [facility] Lanie Rosa M.D. 89380 R06.02 [facility] I49.5 Z95.0 I48.0 I25.719 I10 Z95.2 R07.9 Office Visit 05/07/2015 11:15a [facility] Lanie Rosa M.D. 74433 R06.02 Event Planner I49.5 Z95.0 I48.0 I25.810 Z95.2 Office Visit 04/03/2015 8:30a [facility] Danyel Rosa M.D. 70229 Z95.0 [facility] R25.1 I25.810 R06.02 I48.2 Z95.2 I35.0 I34.0 I36.1 Office Visit 01/16/2015 9:00a [facility] Lanie Rosa M.D. 76139 R06.00 [facility] Z95.0 I48.0 I25.810 I50.32 I35.0 Z95.4 I34.0 I36.1 R94.31 Office Visit 10/17/2014 10:00a [facility] Lanie Rosa M.D. 93396 427.31 [facility] V45.01 427.81 414.00 786.09 424.0 Office Visit 08/27/2014 6:50p [facility], Liss Cardenas, 67391 558.9 Hospitalists M.DGaby 787.01 414.00 427.31 Office Visit 08/26/2014 6:49p [facility], Liss Cardenas, 85021 558.9 Hospitalists M.DGaby 787.01 414.00 427.31 Office Visit 08/25/2014 11:34a [facility], ESTRELLA Musa 65792 789.04 Hospitalists 443.9 414.00 558.9 Office Visit 08/25/2014 6:48p [facility] Liss Cardenas, 48273 558.9 Hospitalists M.DGaby 787.01 414.00 427.31 Office Visit 08/24/2014 6:47p [facility], Cesario Handley M.D. 03797 558.9 Hospitalists 787.01 414.00 427.31 Office Visit 06/12/2014 3:00p [facility] ESTRELLA Monk 64788 427.31 V45.01 428.0 V43.3 790.6 Office Visit 05/19/2014 11:15a [facility] ESTRELLA Monk 35815 427.31 786.09 424.2 V45.01 428.0 Office Visit 05/10/2014 10:00a [facility] ESTRELLA Monk 54140 427.31 424.2 786.09 786.50 V43.3 V45.01 Office Visit 05/02/2014 8:25a [facility], Elsy Bar, N.P. 19378 786.50 Hospitalists 414.00 397.0 427.31 Office Visit 04/28/2014 10:30a [facility] Lanie Rosa M.D. 99301 786.05 Event Planner 427.31 424.1 424.0 424.2 Office Visit 03/22/2014 8:45a [facility] Danyel Rosa M.D. 93291 427.81 Event Planner V45.01 427.31 786.05 424.1 V43.3 Office Visit 10/12/2013 9:15a [facility] Danyel Rosa M.D. 61423 443.9 Event Planner 414.02 782.3 V45.01 428.0 Office Visit 07/18/2013 8:15a [facility] Danyel Rosa M.D. 74605 427.31 Event Planner 443.9 414.9 Office Visit 06/16/2013 12:54p [facility] Danyel Rosa M.D. 27775 427.31 Event Planner Office Visit 06/15/2013 12:38p [facility] Danyel Rosa M.D. 16713 443.9 Event Planner 427.31 414.9 Office Visit 06/06/2013 2:00p [facility] Danyel Rosa M.D. 84908 427.31 Event Planner 414.02 443.9 729.5 428.0 586 Office Visit 06/03/2013 10:56a [facility], Bipin Pompa 76724 682.7 Hospitalists Laura 443.9 427.31 Office Visit 06/02/2013 10:55a [facility], Bipin Pompa 04433 682.7 Hospitalists Laura 443.9 427.31 Office Visit 06/01/2013 10:55a [facility],susu Bar N.PGaby 75139 682.7 Hospitalists 443.9 427.31 Office Visit 05/13/2013 2:45p [facility] [place] [address] 786.05 782.3 Office Visit 05/11/2013 10:00a [facility] Danyel Rosa M.D. 33529 782.3 Event Planner [facility] 786.05 427.31 Office Visit 05/11/2013 10:00a [facility] [place] [address] 786.05 [facility] 782.3 Office Visit 02/22/2013 1:30p [facility] [place] [address] 786.05 780.4 Office Visit 02/11/2013 1:15p [facility] [place] [address] 786.05 [facility] Office Visit 02/08/2013 2:00p [facility] Lanie Rosa M.D. 62081 780.4 Event Planner 427.31 427.81 V45.01 799.02 787.91 Office Visit 12/30/2012 12:15p [facility] Lanie Rosa M.D. 13507 414.02 Event Planner 427.31 424.1 428.0 Office Visit 12/13/2012 11:45a [facility] Lanie Rosa M.D. 90827 427.31 Event Planner 786.09 428.0 424.1 Office Visit 11/23/2012 8:45a [facility] Lanie Rosa M.D. 04051 427.31 Event Planner 414.02 424.1 786.05 Office Visit 10/05/2012 9:15a [facility] Lanie Rosa M.D. 41100 786.05 [facility] 799.02 427.31 496 Office Visit 09/30/2012 8:45a [facility] Danyel Rosa M.D. 44951 799.02 [facility] 786.09 414.02 424.1 Office Visit 08/07/2012 12:28p [facility] Jamal Barrios 23189 424.1 Julio César Sanchez V72.81 Office Visit 07/14/2012 9:45a [facility] Lanie Rosa M.D. 60114 428.0 Event Planner 427.31 414.02 V72.81 Office Visit 07/09/2012 3:00p [facility] Danyel Rosa M.D. 93811 427.31 Event Planner [facility] 428.0 414.02 786.09 Office Visit 07/06/2012 9:45a [facility] Danyel Rosa M.D. 19387 786.09 Event Planner 427.31 786.02 401.9 799.01 Office Visit 06/15/2012 9:00a [facility] Lanie Rosa M.D. 32590 786.09 Event Planner 427.31 414.02 424.1 Office Visit 05/11/2012 2:45p [facility] Lanie Rosa M.D. 19506 427.31 [facility] 786.09 789.00 787.91 Office Visit 05/04/2012 2:15p [facility] Lanie Rosa M.D. 05306 786.09 Event Planner 427.89 427.31 428.0 Office Visit 04/29/2012 9:45a [facility] Lanie Rosa M.D. 76584 425.4 Event Planner 414.02 424.1 394.1 Office Visit 04/14/2012 1:00p [facility] Danyel Rosa M.D. 41347 427.31 Event Planner 427.81 786.09 424.1 Office Visit 04/03/2012 1:35p [facility] Kannan Nelson, 35274 414.01 Laura 401.1 427.31 427.81 427.1 Office Visit 03/23/2012 8:45a [facility] Danyel Rosa M.D. 74843 427.31 Event Planner 786.09 Office Visit 02/17/2012 8:15a [facility] Danyel Rosa M.D. 07165 427.31 Event Planner 394.1 424.2 Office Visit 02/04/2012 10:45a [facility] Danyel Rosa M.D. 98906 427.31 Event Planner 786.09 414.9 Office Visit 04/24/2011 2:15p [facility], 06926 923.03 CEric Sanchez Plan of Care Future Appointment(s):12/01/2017 10:30 am - Lanie Rosa M.D. at [facility]09/25/2017 - Lanie Rosa M.D.I48.2 Chronic atrial fibrillationFollow up:Provide patient with information on new Palliative care progam.R06.02 Shortness of breathComments:Lungs are clear.Recommendations: Continue oxygen.I75.021 Atheroembolism of right lower extremityComments: Continue blood thinner (coumodin and plavix)Follow up:Get name of vascular MD at [facility]. Release: D/C summary [place] July or August.I44.2 Atrioventricular block, pmsgbalvE15.0 Presence of cardiac gghecajrqC53.810 Atherosclerosis of CABG w/o angina pectorisFollow up:OV 2-3 months with me, stagger with orther appointments.Z95.2 Presence of prosthetic heart valveComments:Good function on echo. Stable function based on my exam.I50.32 Chronic diastolic (congestive) heart axaelqyL58.0 Localized edemaComments: Continue with Dr Lockett offices increased dose of diuretics.I95.1 Orthostatic hypotensionFollow up:Have nurses check OS vitals now.Recommendations:STOP LISINOPRIL
[2017-10-23] MEDS ORDERED: Acetaminophen TAB* 325 MG PO PRN (13:07)
[2017-10-23] MEDS ORDERED: Ondansetron INJ* 2 MG/ML VIAL IV PRN (13:07)
[2017-10-23] MEDS ORDERED: Diphenoxylat/Atrop 2.5-0.025M* 1 TAB PO PRN (13:26)
[2017-10-23] MEDS ORDERED: tiZANidine TAB* 2 MG PO PRN (13:26)
[2017-10-23 13:54] LABS: ABS Basophils 0 10^3/ul (0-0.2); ABS Eosinophils 0.1 10^3/ul (0-0.6); ABS Lymphocytes 0.9 10^3/ul (1.0-4.8); ABS Monocytes 0.6 10^3/ul (0-0.8); ABS Neutrophils 4.3 10^3/ul (1.5-7.7); ABS Nucleated RBC 0 10^3/ul; Eosinophil % 1.6 % (0-6); Hematocrit 33 % (42-52); Hemoglobin 11.3 g/dl (14.0-18.0); Mean Corpuscular HGB Conc 34 g/dl (31-36); Mean Corpuscular Hemoglobin 33 pg (27-31); Mean Corpuscular Volume 97 fL (80-94); Mean Platelet Volume 7.9 um3 (7.4-10.4); Nucleated Red Blood Cells % 0; Platelet Count 222 10^3/ul (150-450); Red Blood Count 3.41 10^6/ul (4.00-5.40); Red Cell Distribution Width 14 % (10.5-15); White Blood Count 5.9 10^3/ul (3.5-10.8)
[2017-10-23] MEDS ORDERED: Warfarin TAB(*) 1 MG PO SCH (14:00)
[2017-10-23] MEDS ORDERED: ceFAZolin 2 GM PREMIX (*) 2 GM/50 ML BAG IVPB SCH (14:00)
[2017-10-23 14:06] LABS: INR 1.38 (0.77-1.02)
[2017-10-23 14:13] LABS: EGFR Non-African American 50.4 (>60)
--- NOTE | 2017-10-23 14:32 | RAD ---
HISTORY: wound, wound of the heel and top of foot, cellulitis COMPARISONS: None VIEWS: 3, Frontal, lateral, and oblique views of the right foot FINDINGS: BONE DENSITY: There is diffuse osteopenia. BONES: There is no displaced fracture. There is no appreciable erosion or periosteal reaction. JOINTS: There is osteoarthritis of the first MTP joint and of the midfoot. ALIGNMENT: There is no dislocation. SOFT TISSUES: There is peripheral arterial calcification. OTHER FINDINGS: None. IMPRESSION: 1. OSTEOPENIA. 2. OSTEOARTHRITIS. 3. PERIPHERAL ARTERIAL DISEASE. 4. NO APPRECIABLE EROSION OR PERIOSTEAL REACTION. PLAIN FILM FINDINGS OF OSTEOMYELITIS ARE RELATIVELY LATE FINDINGS. IF THERE IS PERSISTENT CLINICAL CONCERN FOR OSTEOMYELITIS, RECOMMEND CORRELATION WITH FOLLOWUP IMAGING, THREE-PHASE BONE SCANNING, WHITE BLOOD CELL SCAN, AND/OR MRI OF THE AFFECTED REGION.
[2017-10-23] MEDS: Isosorbide Mononitrate ER TAB* 30 MG PO SCH (14:48)
[2017-10-23] MEDS: Carvedilol TAB* 3.125 MG PO SCH ×2 (14:48→21:33)
[2017-10-23] MEDS: ceFAZolin 2 GM PREMIX (*) 2 GM/50 ML BAG IVPB SCH (15:07)
[2017-10-23] MEDS: Enoxaparin(*) 60 MG/0.6 ML SYR SUBCUT SCH (16:27)
[2017-10-23] MEDS ORDERED: Warfarin TAB(*) 5 MG PO ONE (17:00)
--- NOTE | 2017-10-23 20:18 | HP ---
CC: Dr. Cobos; Dr. Rosa; Dr. Hart * HISTORY AND PHYSICAL: DATE OF ADMISSION: 10/23/17 PRIMARY CARE PROVIDER: Dr. Cobos. ATTENDING PHYSICIAN WHILE IN THE HOSPITAL: Dr. Jose L Zhu * (report dictated by Bijan Cortez NP). CHIEF COMPLAINT: Right foot wound. HISTORY OF PRESENT ILLNESS: Mr. Cantu is an 82-year-old male patient with a known history of atrial fibrillation; hypertension; hyperlipidemia; CKD, stage 3 ; NERI, which he wears oxygen at night for. He also carries a history of diastolic CHF, hypothyroidism. He also has a history of severe tricuspid regurg , history of CAD, also has a recent history of peripheral arterial disease, peripheral vascular disease thought secondary to be from an embolic phenomenon, thought to be cardiac related. He was recently diagnosed with this in [facility] in July. He underwent an angiogram of the right lower extremity and it was found that he had occlusions that were not amenable to revascularization. He had been having significant amount of pain in that right foot and again ultimately, he was found to have most likely a cardioembolic source to the lower extremities. He developed wounds to the heel and to the top of his foot with some erythema, he has noticed some drainage. Today, he has been wearing sandals. He was presenting to Dr. Cobos' office today according to the patient for routine followup. He was evaluated by Dr. Cobos. There was concern that there was overlying cellulitis of his right foot and he was sent to the hospital. The patient denies having any fevers or chills. Denies any chest pain. He says he does feel short of breath, but it is no worse than what his baseline is. He denies any weight gain, actually he has had weight loss. There is no vomiting. He says he was having issues with colitis and diarrhea, but since being placed on medications, he has been doing well. He again presented today from Dr. Cobos' office for presumed cellulitis and we were asked to evaluate for admission. He again does have a fairly complex history and the concern was him having peripheral vascular disease and felt that he would require IV antibiotics. PAST MEDICAL HISTORY: Significant for: 1. AFib. 2. Hypertension. 3. Hyperlipidemia. 4. CKD, stage 3. 5. NERI, wears 2 L oxygen at night. 6. History of diastolic CHF. 7. History of hypothyroidism. 8. He was recently diagnosed with a presumed cardiac thrombus with showering event to the lower extremities, peripheral vascular disease. 9. Severe tricuspid regurg. 10. CAD. PAST SURGICAL HISTORY: He has had: 1. AV ablation. 2. Pacemaker placement. 3. Cholecystectomy. 4. Bilateral total knee replacement. 5. CABG. 6. AVR. MEDICATIONS: His home medications include: 1. Warfarin 1.5 mg p.o. Thursday, Thursday, Thursday, Thursday, and Thursday. 2. Warfarin 1 mg Thursday, . 3. Ultram 50 mg every 6 hours as needed. 4. Demadex 20 mg p.o. daily. 5. Zanaflex 4 mg p.o. every 6 hours as needed. 6. Prilosec 20 mg daily. 7. Lidoderm patch, 1 patch transdermally daily. 8. Ativan 0.5 mg p.o. t.i.d. as needed. 9. Imdur 30 mg p.o. daily. 10. Lomotil 1 tablet p.o. four times a day as needed. 11. Voltaren gel 1 application topically four times a day. 12. Calcium with vitamin D 1 capsule p.o. daily. 13. Mylanta 30 cc every 2 hours as needed. 14. Budesonide 3 mg p.o. b.i.d. 15. Tylenol Extra Strength 500 mg daily as needed. 16. Multivitamin 1 tablet daily. 17. Flonase 2 sprays both nares daily. 18. Colace 100 mg p.o. b.i.d. as needed. 19. Carvedilol 3.125 mg p.o. b.i.d. 20. Imodium 2 mg p.o. daily as needed. 21. Synthroid 75 mcg p.o. daily. 22. Compazine 5 mg p.o. every 6 hours as needed. 23. Triamcinolone cream 1 application topically b.i.d. as needed. 24. Flomax 0.4 mg daily. 25. Aldactone 25 mg daily. 26. Crestor 5 mg p.o. daily ALLERGIES TO MEDICATIONS: Include ATORVASTATIN, WELCHOL, TIKOSYN, DRONEDARONE, FISH OIL, METOPROLOL, NIACIN, NITROGLYCERIN, SIMVASTATIN, FLOMAX, and WARFARIN. FAMILY HISTORY: Mother had a history of CAD. Father had a history of [place]. SOCIAL HISTORY: He is a nonsmoker. Does not drink alcohol. Surrogate decision maker is his . REVIEW OF SYSTEMS: There is no documented fever. Denies any significant weight change. There is no double vision. He denies having any ear discharge. There is no rhinorrhea. There was no sore throat or thyroid enlargement. Denies having any chest pain. There was no orthopnea. There was no nocturnal dyspnea. He denies having any abdominal discomfort. There was no nausea, no vomiting. No dysuria, no frequency. No seizure, no loss of consciousness. No pruritus. There are skin ulcerations from my HPI. Review of 14 systems was completed, all others negative. PHYSICAL EXAMINATION GENERAL: At this time, Mr. Cantu is an 82-year-old male patient. He is sitting in the hospital bed. He does not appear to be in any acute distress. VITAL SIGNS: Blood pressure 135/64 with pulse of , respirations 16, O2 sat 100% , temperature 97.4. HEENT: Head: Atraumatic. Eyes: EOMs intact. Sclerae anicteric, not pale. NECK: Supple. Throat: Oral mucosa appears to be moist. No oropharyngeal erythema. LUNGS: Clear. No wheezes, rales, or rhonchi. HEART: Sounds S1 and S2. He had a regular rate and rhythm. No murmurs, rubs, or gallops. ABDOMEN: Soft, flat, nontender. Bowel sounds are present. EXTREMITIES: He had 2+ pitting edema. He has a noted ulcer to the dorsum of his right foot and also erythema to top part of his right foot. In addition to this, he had an ulcer to the right heel again with erythema surrounding that ulcer with some drainage noted. Bilateral femoral pulses were palpable. Bilateral pedal pulses were dopplerable. He has 5/5 strength. NEUROLOGIC: He is awake, alert, and oriented x3. He had no gross focal deficit. SKIN: Again intact with the exception of the aforementioned ulcers to the lower extremity in the right leg. LABORATORY DATA: He did have labs done in 07/2017, which is WBC was 4.5, RBC 3.46, hemoglobin 11.6, hematocrit of 34, platelet count of 136. His last INR was 2.18. His sodium 135, potassium 4.5, chloride 100, bicarb 28, BUN 34, creatinine 1.21, and the glucose 107. Old medical records were reviewed. ASSESSMENT AND PLAN: Mr. Cantu is an 82-year-old male patient with a complex medical history, coming into the hospital today from Dr. Cobos' office for evaluation of right foot cellulitis. He will be admitted under inpatient status for: 1. Right foot cellulitis. At this point, he does have wounds to the right foot as well, which may ultimately not heal due to the fact that he has significant peripheral arterial disease. I am going to get the angio report from [facility]. I did read the vascular followup. The plan was to go and do a left lower extremity angiogram. He has had ABIs and his index on the right foot was 0.83. Again, he did have calcification. The plan will be to get an x- ray of the foot, ESR, CRP, blood cultures. Start him on Ancef. I did touch base with Dr. Hart. He will evaluate the patient on Thursday. We will get wound cultures as well. I have ordered Wound Care consult and evaluation as well to help, and we will continue to follow him. I have ordered dermovascular checks for the patient. 2. Atrial fibrillation. Continue the patient's warfarin. He is rate controlled with carvedilol. Continue with meds as prescribed. 3. Hypertension. Continue meds as prescribed. 4. Hyperlipidemia. Continue Crestor as he tolerates this. 5. Chronic kidney disease, stage 3. Awaiting creatinine. 6. Obstructive sleep apnea. We will continue his 2 L nasal cannula. 7. History of diastolic congestive heart failure. Again, last ejection fraction from Dr. Rosa's note was 55% to 60%. He had severe tricuspid regurgitation and his pulmonary artery pressure was 44 mmHg. The plan at this point would be to continue diuresing as needed. I will continue his medications as prescribed. He does not appear to be in failure. 8. Hypothyroidism. Continue his Synthroid. 9. History of again peripheral arterial disease secondary to cardioembolic source. Continue the warfarin, INR pending. Again, get records from [facility]. 10. Coronary artery disease. He is on statin and beta-vincent therapy. We will continue. 11. Code status. He is a DNR. 12. Fluids, electrolytes, and nutrition. He can have a heart-healthy diet. TIME SPENT: On admission 60 minutes, greater than half of the time was spent face- to-face with the patient obtaining my history and physical, other half of the time spent going over the plan of care with the patient and implementing plan of care. I did discuss the plan of care with my attending, Dr. Zhu; he is in agreement. BIJAN CORTEZ, YAMILE [id number]/CPS #: [id number] AURA
[2017-10-23] MEDS: traMADol TAB* 50 MG PO PRN (21:33)
[2017-10-23] MEDS: CMC:Budesonide CAP(NF) 3 MG PO SCH (21:33)
[2017-10-23] MEDS: CMC:Rosuvastatin (NF) 5 MG TAB PO SCH (21:33)
[2017-10-23] MEDS: LORazepam TAB(*) 0.5 MG PO PRN (21:34)
[2017-10-23] MEDS: Docusate CAP* 100 MG PO PRN (21:47)
[2017-10-24] MEDS: ceFAZolin 2 GM PREMIX (*) 2 GM/50 ML BAG IVPB SCH ×2 (02:00→15:41)
[2017-10-24] MEDS: Enoxaparin(*) 60 MG/0.6 ML SYR SUBCUT SCH ×2 (04:55→15:39)
[2017-10-24 08:15] LABS: ABS Basophils 0 10^3/ul (0-0.2); ABS Eosinophils 0 10^3/ul (0-0.6); ABS Lymphocytes 0.7 10^3/ul (1.0-4.8); ABS Monocytes 0.5 10^3/ul (0-0.8); ABS Neutrophils 3.9 10^3/ul (1.5-7.7); ABS Nucleated RBC 0 10^3/ul; Eosinophil % 0.9 % (0-6); Hematocrit 31 % (42-52); Hemoglobin 10.3 g/dl (14.0-18.0); Lymphocyte % 14.2 % (25-47); Mean Corpuscular HGB Conc 34 g/dl (31-36); Mean Corpuscular Hemoglobin 33 pg (27-31); Mean Corpuscular Volume 98 fL (80-94); Mean Platelet Volume 7.9 um3 (7.4-10.4); Nucleated Red Blood Cells % 0; Platelet Count 214 10^3/ul (150-450); Red Blood Count 3.14 10^6/ul (4.00-5.40); Red Cell Distribution Width 14 % (10.5-15); White Blood Count 5.2 10^3/ul (3.5-10.8)
[2017-10-24 08:18] LABS: INR 1.49 (0.77-1.02)
[2017-10-24 08:29] LABS: EGFR Non-African American 55.5 (>60)
--- NOTE | 2017-10-24 08:30 | PN ---
Subjective Date of Service: 10/24/17 Interval History: no complaints, reports that he is feeling better. states pain in right foot is improved. Denies chest pain or shortness of breath. denies abd pain n/v/d. Family History: Unchanged from Admission Social History: Unchanged from Admission Past Medical History: Unchanged from Admission Objective Active Medications: Acetaminophen (Tylenol Tab*) 650 mg PO Q4H PRN PRN Reason: FEVER/PAIN Budesonide (Budesonide Cap(Nf)) 3 mg PO BID [facility]; Protocol Last Admin: 10/23/17 21:33 Dose: 3 mg Calcium/Vitamin D (Oscal D Tab 250/125*) 1 tab PO DAILY [facility] Carvedilol (Coreg Tab*) 3.125 mg PO BID [facility] Last Admin: 10/23/17 21:33 Dose: 3.125 mg Diclofenac Sodium (Voltaren 1% Gel (Nf)) 1 applic TOPICAL QID [facility]; Protocol Diphenoxylate HCl/Atropine (Lomotil Tab*) 1 tab PO QID PRN PRN Reason: DIARRHEA Docusate Sodium (Colace Cap*) 100 mg PO BID PRN PRN Reason: CONSTIPATION Last Admin: 10/23/17 21:47 Dose: 100 mg Enoxaparin Sodium (Lovenox(*)) 60 mg SUBCUT Q12H [facility] Last Admin: 10/24/17 04:55 Dose: 60 mg Fluticasone Propionate (Flonase Nasal [place] 50mcg*) 2 spray BOTH NARES DAILY [facility] Cefazolin Sodium/Dextrose (Kefzol 2 Gm Premix(*)) 2 gm in 50 mls @ 100 mls/hr IVPB Q12H [facility] Last Admin: 10/24/17 02:00 Dose: 100 mls/hr Isosorbide Mononitrate (Imdur Er Tab*) 30 mg PO DAILY [facility] Last Admin: 10/23/17 14:48 Dose: 30 mg Levothyroxine Sodium (Synthroid Tab*) 75 mcg PO DAILY [facility] Lidocaine (Lidoderm 5% Patch*) 1 patch TRANSDERM DAILY [facility] Lorazepam (Ativan Tab(*)) 0.5 mg PO TID PRN PRN Reason: ANXIETY Last Admin: 10/23/17 21:34 Dose: 0.5 mg Multivitamins/Minerals (Theragran/Minerals Tab*) 1 tab PO DAILY [facility] Omeprazole (Prilosec Cap*) 20 mg PO DAILY [facility] Ondansetron HCl (Zofran Inj*) 4 mg IV Q6H PRN PRN Reason: NAUSEA Rosuvastatin Calcium (Crestor (Nf)) 5 mg PO BEDTIME [facility]; Protocol Last Admin: 10/23/17 21:33 Dose: 5 mg Spironolactone (Aldactone Tab*) 25 mg PO DAILY [facility] Tamsulosin HCl (Flomax Cap*) 0.4 mg PO DAILY [facility] Tizanidine HCl (Zanaflex Tab*) 4 mg PO Q6H PRN PRN Reason: SPASMS Torsemide (Demadex*) 20 mg PO DAILY [facility] Tramadol HCl (Ultram*) 50 mg PO Q6HR PRN PRN Reason: PAIN Last Admin: 10/23/17 21:33 Dose: 50 mg Warfarin Sodium (Coumadin Tab(*)) 1 mg PO MoTh@1700 [facility] Warfarin Sodium (Coumadin Tab(*)) 1.5 mg PO SuTuWeFrSa@1700 [facility] Vital Signs - 8 hr 10/24/17 10/24/17 00:26 03:33 Pulse Rate 60 Respiratory 18 16 Rate Blood Pressure 154/68 (mmHg) O2 Sat by Pulse 99 Oximetry Oxygen Devices in Use Now: Nasal Cannula Appearance: elderly male , lyingin bed, appears comfortable, no acute distress Eyes: No Scleral Icterus Ears/Nose/Mouth/Throat: Clear Oropharnyx, Mucous Membranes Moist Neck: NL Appearance and Movements; NL JVP, Trachea Midline Respiratory: Symmetrical Chest Expansion and Respiratory Effort, Clear to Auscultation Cardiovascular: NL Sounds; No Murmurs; No JVD, No Edema Abdominal: NL Sounds; No Tenderness; No Distention Extremities: No Edema, No Clubbing, Cyanosis Skin: - - right heel and top of right foot with open areas. , mild redness not to the top of the foot. scattered scabbed areas noted to toes. Neurological: Alert and Oriented x 3 Nutrition: Taking PO's Result Diagrams: 10/24/17 07:25 10/24/17 07:25 Microbiology and Other Data: Microbiology 10/23/17 15:15 Skin and Soft Tissue MRSA/MSSA (PCR - Final Foot Right Mrsa Negative S.aureus Positive Gram Stain - Final Assess/Plan/Problems-Billing Assessment: Mr. Cantu is a 82 yo male who carries a PMHX of HTN, CAD, PVD, Afib, CKD, Diastolic CHF, hypothyroid and gerd who presented to the ER from his PMD office for for further evaluation of right foot cellulitis. - Patient Problems (1) Cellulitis of right foot Current Visit: Yes Status: Acute Code(s): L03.115 - CELLULITIS OF RIGHT LOWER LIMB SNOMED Code(s): 740443045 Comment: Continue cefazolin Wound culture positive for MSSA and staph aureus- sens. pending ID consulted- recommendations appreciated (2) DVT prophylaxis Current Visit: No Status: Acute Priority: Medium Onset Date: 08/24/14 Code(s): HJP2884 - SNOMED Code(s): 657439125 Comment: -continue coumadin - will give 3 mg today - repeat INR in the AM - INR is subtherapeutic- lovenox 60 mg Q 12 until INR is therapeutic (3) Atrial fibrillation Current Visit: No Status: Chronic Priority: Low Code(s): I48.91 - UNSPECIFIED ATRIAL FIBRILLATION SNOMED Code(s): 53364219 Comment: Chronic currently in a paced rythm INR subtherapeutic- will continue lovenox 60 mg Q 12 hours and give 3 mg of coumadin today . patient was recent dx with PVD thought to be related to cardioebolic source Rate controlled (4) CAD (coronary artery disease) Current Visit: No Status: Chronic Code(s): I25.10 - ATHSCL HEART DISEASE OF [place] CORONARY ARTERY W/O ANG PCTRS SNOMED Code(s): 47592701 Comment: Continue home medications (5) CHF (congestive heart failure) Current Visit: No Status: Chronic Priority: Low Code(s): I50.9 - HEART FAILURE, UNSPECIFIED SNOMED Code(s): 24384289 Comment: -stable- not acutely active - will continue aldactone, coreg, demadex and imdur (6) CKD (chronic kidney disease) stage 3, GFR 30-59 ml/min Current Visit: No Status: Chronic Priority: Medium Code(s): N18.3 - CHRONIC KIDNEY DISEASE, STAGE 3 (MODERATE) SNOMED Code(s): 558075476 Comment: creat 1.24 today improved (7) GERD (gastroesophageal reflux disease) Current Visit: No Status: Chronic Code(s): K21.9 - GASTRO-ESOPHAGEAL REFLUX DISEASE WITHOUT ESOPHAGITIS SNOMED Code(s): 786403010 Comment: omeprazole (8) Hypothyroidism Current Visit: No Status: Chronic Priority: Low Code(s): E03.9 - HYPOTHYROIDISM, UNSPECIFIED SNOMED Code(s): 36332074 Comment: Synthroid increased to 75 mcg (9) NERI (obstructive sleep apnea) Current Visit: No Status: Chronic Priority: Low Code(s): G47.33 - OBSTRUCTIVE SLEEP APNEA (ADULT) (PEDIATRIC) SNOMED Code(s): 02658986 Comment: Cont CPAP (10) Peripheral vascular disease Current Visit: No Status: Chronic Priority: Low Code(s): I73.9 - PERIPHERAL VASCULAR DISEASE, UNSPECIFIED SNOMED Code(s): 685962327 Comment: Hx pf PVD with intermittent claudication in right leg.- recently treated at [place] thought to have cardioembolic source of PVD INR subtherapeutic - will give 3 mg of coumadin today and continue to bridge with lovenox. (11) DVT prophylaxis Current Visit: Yes Status: Acute Code(s): ULF7761 - SNOMED Code(s): 362878500 Comment: Coumadin Lovenox 60mg Q 12 hours bridging until INR is therapeutic (12) DNR (do not resuscitate) Current Visit: Yes Status: Acute Status and Disposition: inpatient
[2017-10-24] MEDS: Calcium/Vitamin D TAB 250/125* TAB PO SCH (09:27)
[2017-10-24] MEDS: Carvedilol TAB* 3.125 MG PO SCH ×2 (09:27→20:07)
[2017-10-24] MEDS: Omeprazole CAP* 20 MG PO SCH (09:28)
[2017-10-24] MEDS: Isosorbide Mononitrate ER TAB* 30 MG PO SCH (09:28)
[2017-10-24] MEDS: Multivitamins/Minerals TAB PO SCH (09:28)
[2017-10-24] MEDS: Spironolactone TAB* 25 MG PO SCH (09:28)
[2017-10-24] MEDS: Levothyroxine TAB* 75 MCG TAB PO SCH (09:28)
[2017-10-24] MEDS: Torsemide TAB* 20 MG PO SCH (09:28)
[2017-10-24] MEDS: Tamsulosin CAP* 0.4 MG PO SCH (09:28)
[2017-10-24] MEDS: Lidocaine PATCH 5%* 1 PATCH TRANSDERM SCH (09:33)
[2017-10-24] MEDS: Fluticasone NASAL SPRAY 50MCG* 16 gm SPRAY BTL BOTH NARES SCH (09:34)
[2017-10-24] MEDS: Docusate CAP* 100 MG PO PRN ×2 (09:53→20:06)
[2017-10-24] MEDS: CMC:Budesonide CAP(NF) 3 MG PO SCH ×2 (09:53→20:06)
[2017-10-24] MEDS ORDERED: Warfarin TAB(*) 1 MG PO SCH (17:00)
[2017-10-24] MEDS: LORazepam TAB(*) 0.5 MG PO PRN (20:05)
[2017-10-24] MEDS: CMC:Rosuvastatin (NF) 5 MG TAB PO SCH (20:06)
[2017-10-24] MEDS: traMADol TAB* 50 MG PO PRN (20:11)
[2017-10-24] MEDS ORDERED: Warfarin TAB(*) 1 MG PO ONE ×2 (20:27)
[2017-10-24] MEDS: Diclofenac 1% GEL (NF) 100 GM TUBE TOPICAL SCH (22:29)
[2017-10-25] MEDS: ceFAZolin 2 GM PREMIX (*) 2 GM/50 ML BAG IVPB SCH ×2 (03:25→13:43)
[2017-10-25] MEDS: Enoxaparin(*) 60 MG/0.6 ML SYR SUBCUT SCH ×2 (03:25→16:54)
[2017-10-25 07:27] LABS: EGFR Non-African American 60.6 (>60)
[2017-10-25 07:41] LABS: INR 1.58 (0.77-1.02)
[2017-10-25] MEDS: Levothyroxine TAB* 75 MCG TAB PO SCH (08:16)
[2017-10-25] MEDS: CMC:Budesonide CAP(NF) 3 MG PO SCH (08:16)
[2017-10-25] MEDS: Docusate CAP* 100 MG PO PRN (08:17)
[2017-10-25] MEDS: Tamsulosin CAP* 0.4 MG PO SCH (08:17)
[2017-10-25] MEDS: Calcium/Vitamin D TAB 250/125* TAB PO SCH (08:17)
[2017-10-25] MEDS: Torsemide TAB* 20 MG PO SCH (08:17)
[2017-10-25] MEDS: Multivitamins/Minerals TAB PO SCH (08:17)
[2017-10-25] MEDS: Spironolactone TAB* 25 MG PO SCH (08:17)
[2017-10-25] MEDS: Carvedilol TAB* 3.125 MG PO SCH (08:18)
[2017-10-25] MEDS: Omeprazole CAP* 20 MG PO SCH (08:18)
[2017-10-25] MEDS: Lidocaine PATCH 5%* 1 PATCH TRANSDERM SCH (08:18)
[2017-10-25] MEDS: Isosorbide Mononitrate ER TAB* 30 MG PO SCH (08:18)
[2017-10-25] MEDS: Diclofenac 1% GEL (NF) 100 GM TUBE TOPICAL SCH ×2 (08:19→13:56)
[2017-10-25] MEDS: Fluticasone NASAL SPRAY 50MCG* 16 gm SPRAY BTL BOTH NARES SCH (08:19)
[2017-10-25 12:17] VITALS: BP 106/58
--- NOTE | 2017-10-25 23:11 | DS ---
CC: Dr. Cobos; Dr. Rosa * DISCHARGE SUMMARY: DATE OF ADMISSION: 10/23/17 DATE OF DISCHARGE: 10/25/17 PROVIDER: Aide Ferraro NP. ATTENDING PHYSICIAN: Eneida Larry MD.* (DICTATED BY AIDE FERRARO NP) PRIMARY CARE PROVIDER: Dr. Cobos. PRIMARY DIAGNOSES: 1. Cellulitis. 2. Subtherapeutic INR, on Coumadin. SECONDARY DIAGNOSES: 1. Atrial fibrillation. 2. Hypertension. 3. Hyperlipidemia. 4. Chronic kidney disease stage 3. 5. Obstructive sleep apnea, wears 2 L oxygen at night. 6. History of diastolic congestive heart failure. 7. History of hypothyroidism. 8. Recently diagnosed with cardiac thrombus, with showering event to lower extremities. 9. Peripheral vascular disease. 10. Severe tricuspid regurgitation. 11. Coronary artery disease. STUDIES COMPLETED WHILE IN THE HOSPITAL: He had a foot x-ray completed on , radiologist's impression: 1. Osteopenia. 2. Osteoarthritis. 3. Peripheral artery disease. 4. No appreciable erosion or periosteal reaction. DISCHARGE MEDICATIONS: New home medications: 1. Lovenox 90 mg subcu daily, start 10/26/17. 2. Coumadin 2 mg p.o. daily. 3. Keflex 500 mg 4 times a day x6 days. Continued home medications: 1. Ultram 50 mg p.o. q.6 hours as needed. 2. Demadex 20 mg p.o. daily. 3. Zanaflex 4 mg p.o. every 6 hours as needed. 4. Prilosec 20 mg p.o. daily. 5. Lidoderm patch 1 patch transdermally daily. 6. Ativan 0.5 mg p.o. t.i.d. as needed. 7. Imdur 30 mg p.o. daily. 8. Lomotil 1 tablet 4 times a day as needed. 9. Voltaren gel 1 application topically 4 times daily. 10. Calcium with vitamin D, 1 capsule p.o. daily. 11. Mylanta 30 mL every 2 hours as needed. 12. Budesonide 3 mg p.o. b.i.d. 13. Tylenol Extra Strength 500 mg as needed. 14. Multivitamin 1 tablet daily. 15. Flonase 2 sprays to both nares daily. 16. Colace 100 mg p.o. b.i.d. as needed. 17. Carvedilol 3.125 mg p.o. b.i.d. 18. Imodium 2 mg p.o. daily as needed. 19. Synthroid 75 mcg p.o. daily. 20. Compazine 5 mg p.o. q.6 hours as needed. 21. Triamcinolone cream 1 application topically b.i.d. as needed. 22. Flomax 0.4 mg p.o. daily. 23. Aldactone 25 mg p.o. daily. 24. Crestor 5 mg p.o. daily. HISTORY OF PRESENT ILLNESS AND HOSPITAL COURSE: Mr. Cantu is an 82-year-old male patient with a known history of atrial fibrillation, hypertension, hyperlipidemia, chronic kidney disease stage 3, obstructive sleep apnea, recently diagnosed with showering cardiac thrombus to the lower extremities, peripheral vascular disease, peripheral arterial disease, tricuspid regurgitation, and coronary artery disease, who presented to the emergency room from Dr. Cobos' office for further evaluation of right foot cellulitis. He had developed a wound on his heel and the top of his foot and noticed some drainage and that his feet were swollen, so he presented to Dr. Kenny for evaluation and was sent here for further evaluation of cellulitis and IV antibiotics. On admission, the patient denied any fevers, chills, nausea, vomiting or diarrhea; denied any chest pain or shortness of breath. Routine lab work was drawn. The patient did not have a white count. His ESR was elevated at 74. C-reactive protein was 36.97 on admission. The patient was also found to have subtherapeutic INR, on admission was 1.38 and on discharge was 1.58. He was admitted for IV antibiotics for right foot cellulitis and subtherapeutic INR. During the hospitalization, he was monitored. His cellulitis improved to his right foot, the pain resolved, the swelling in bilateral lower extremities resolved. He was afebrile throughout his hospitalization. He did not have a white count. His INR was found to be subtherapeutic. He was started on 60 mg subcu q.12 hours for bridging for his Coumadin. He was given extra doses of Coumadin during his hospitalization. His INR was monitored. It went from 1.38 to 1.58 on the day of discharge. The patient reports that he does not want any angiogram completed to his left lower leg at this time. He reports he would like to go home and that he is feeling better. REVIEW OF SYSTEMS: The patient denies any chest pain or shortness of breath. Denies any nausea, vomiting or diarrhea. Denies any urinary frequency or urgency. Denies any fever or chills. He denies any lower extremity pain. A review of 14 systems was completed, all others are negative. PHYSICAL EXAMINATION: General: At this time, Mr. Cantu is an 82-year-old male , he appears well, sitting in bed, in no shortness of breath. Eyes: Sclerae nonicteric. Ears, nose, mouth, throat: No oropharyngeal erythema. Mucous membranes are moist. Neck: Trachea is midline. No JVD. Chest: Lung sounds are clear bilaterally. Diminished in the bases. No accessory muscle use. Cardiac: S1, S2. There is no JVD. No edema. Abdomen is soft and nontender. Bowel sounds are present x4. Extremities: There is no edema, clubbing or cyanosis. Skin: Right heel and top of the right foot with open areas. There is mild purulent drainage. There is mild redness noted to the top of the right foot with scattered scabbed areas noted to bilateral toes. Dressing is intact to his right foot. Neurologic: He is alert and oriented x3. At this time, Mr. Cantu is stable for discharge home. He did have a physical therapy consult during this admission, which recommended no further skilled physical therapy. Vital signs are as follows: Temp was 97.9, heart rate was 58, respirations 18, O2 saturation is 100% on room air, blood pressure 106/58. DISCHARGE PLAN: At this time, Mr. Cantu will be discharged home. 1. Activity as tolerated. 2. Daily dressing change to the right foot. He is currently being scheduled to follow with [facility] by Dr. Cobos' office. He was instructed to call the office on Thursday to see when appointment is available for him. 3. Cellulitis. The patient should follow up with Dr. Cobos in 1 to 3 days for right foot wound check. He should continue on Keflex 500 mg 4 times a day x6 days for a total of 7-day course of treatment for his right foot cellulitis. 4. He was instructed to return to the emergency room for any fever, chills, worsening redness or increased drainage from the right foot that is unmanageable at home. The patient verbalized understanding. 5. Peripheral vascular disease. At this time, Mr. Cantu does not want any further intervention with angiogram to the left lower leg at this time. He is refusing any further intervention for the lower extremities. He should continue on Coumadin at 2 mg as his INR was subtherapeutic with bridging with Lovenox 90 mg subcu daily. 6. Subtherapeutic INR. Again, we will continue him on Coumadin 2 mg p.o. daily. He should have a repeat INR in 3 days on 10/28/17. He should continue bridging Lovenox 90 mg subcu daily until his INR is above 2. 7. Atrial fibrillation. He should continue on his previous home medications including Coumadin. 8. Hypertension. He should continue on his home medications as previously prescribed. 9. Hyperlipidemia. He should continue on his home medications as previously prescribed. 10. The patient should follow up with Dr. Cobos in 1 to 3 days for wound recheck of his right foot. The patient was instructed to return to the emergency room with any chest pain, shortness of breath, fever, chills, increased redness to the right lower extremity, or any other concerning symptoms. TIME SPENT: Time spent on this discharge is approximately 60 minutes, greater than half that time was spent with the patient discussing discharge plans and instructions. CONDITION AT DISCHARGE: Stable. AIDE JUAN CARLOS, YAMILE [id number]/[facility] #: [id number] AURA
[2017-10-26] MEDS ORDERED: Warfarin TAB(*) 1 MG PO SCH ×2 (13:26→17:00)
== END 2017-10-25 18:00 | disposition home health service (06) | DRG 603 ==
LOC: MED 11:24 → OBSVTOIN 11:24
PROVIDERS: ADMIT Internal Medicine; ATTEND Pediatrics
DX: L03.115 Cellulitis of right lower limb (principal); I13.0 Hypertensive heart and chronic kidney disease with heart failure and stage 1 through stage 4 chronic kidney disease, or unspecified chronic kidney disease; I50.32 Chronic diastolic (congestive) heart failure; D68.8 Other specified coagulation defects; I48.91 Unspecified atrial fibrillation; E78.5 Hyperlipidemia, unspecified; N18.3 Chronic kidney disease, stage 3 (moderate); G47.33 Obstructive sleep apnea (adult) (pediatric); E03.9 Hypothyroidism, unspecified; I25.10 Atherosclerotic heart disease of native coronary artery without angina pectoris; I07.1 Rheumatic tricuspid insufficiency; Z96.653 Presence of artificial knee joint, bilateral; Z66 Do not resuscitate; K21.9 Gastro-esophageal reflux disease without esophagitis; I70.211 Atherosclerosis of native arteries of extremities with intermittent claudication, right leg; M85.871 Other specified disorders of bone density and structure, right ankle and foot; M19.071 Primary osteoarthritis, right ankle and foot; Z90.49 Acquired absence of other specified parts of digestive tract; Z95.1 Presence of aortocoronary bypass graft; Z95.2 Presence of prosthetic heart valve; Z99.81 Dependence on supplemental oxygen; Z95.0 Presence of cardiac pacemaker; Z88.8 Allergy status to other drugs, medicaments and biological substances; Z82.49 Family history of ischemic heart disease and other diseases of the circulatory system; Z79.01 Long term (current) use of anticoagulants; Z88.1 Allergy status to other antibiotic agents
CPT/HCPCS: 36415; 80048; 83605; 85025; 85610; 85652; 86140; 87040; 87070; 87077; 87186; 87205; 87640; 87641; A9270-GY; G8978-GP-CI; G8979-GP-CI; G8980-GP-CI; J0690; J1650; J2405